=== PATIENT | female | born 1960 | race Caucasian/White ===

== ENCOUNTER → 2019-05-29 09:44 | Outpatient (CLI) | payer OTHER, SELFPAY ==
[2017-02-04 06:14] VITALS: BMI 27.1
[2019-05-29 12:18] LABS: Erythrocyte Sedimentation Rate < 1 mm/hr (0-30)
[2019-05-29 12:22] LABS: Absolute Lymphocyte Count 3.26 X10^3/uL (0.83-4.51); Absolute Neutrophil Count 1.9 X10^3/uL (2.0-7.7); Basophil# 0.08 X10^3/uL; Basophil% 1.3 % (0-1); Eosinophils% 4.9 % (0-5); Hematocrit 43.8 % (37-47); Hemoglobin 14.8 g/dL (12.0-15.0); Lymphocyte # 3.26 X10^3/ul (4.0); Lymphocyte % 53.4 % (19-41); Mean Corp Hgb Conc 33.8 g/dL (32-36); Mean Corpuscular Hgb 31.9 pg (27.0-32.0); Mean Corpuscular Volume 94.4 fL (81-99); Mean Platelet Vol. 10.5 fl (6.2-12.0); Monocyte# 0.51 X10^3/uL; Monocyte% 8.4 % (0-10); NRBC Flagged by Analyzer 0.3 % (0-5); Neutrophil # 1.93 X10^3/uL (2.7-7.7); Neutrophil % 31.7 % (47-70); Platelet Count 205 K/mm3 (150-450); RBC Distribution Width CV 13.9 % (11.6-14.6); RBC Distribution Width SD 45.4 fl (35.1-43.9); Red Blood Count 4.64 M/mm3 (4.2-5.4); White Blood Count 6.1 K/mm3 (4.4-11.0)
[2019-05-29 12:46] LABS: ALB/GLOB Ratio 1.1 RATIO (0.9-2.4); AST(SGOT) 24 U/L (15-37); Alanine Aminotransfer ALT/SGPT 29 U/L (13-56); Albumin, Serum 3.9 g/dL (3.2-5.0); Alkaline Phosphatase 73 U/L (45-117); Anion Gap 3 (5-15); BUN 12 mg/dL (7-18); BUN/Creat Ratio 12.9 RATIO (10-20); CRP < 2.90 mg/L (0.0-3.0); Chloride 110 mmol/L (98-107); Creatinine, Serum 0.93 mg/dL (0.55-1.02); EST Glomerular Filtration Rate 65 mL/min (>60); Est Glom Filt Rate - Afr Amer 79 mL/min (>60); Globulin 3.4 g/dL (2.2-4.2); Glucose 78 mg/dL (74-106); Potassium 4.3 mmol/L (3.5-5.1); Protein, Total 7.3 g/dL (6.4-8.2); Rheumatoid Factor < 10.0 IU/mL (<15); Sodium Level 143 mmol/L (136-145)
[2019-05-29 13:37] LABS: Hepatitis B Surface Antibody Non-Reactive; Hepatitis B Surface Antigen Non-Reactive (Nonreactive); Hepatitis C Antibody Non-Reactive (Nonreactive)
[2019-05-30 14:08] LABS: SJOGREN'S Anti-SS-A test < 0.2 AI (0.0-0.9); SJOGREN'S Anti-SS-B test < 0.2 AI (0.0-0.9)
[2019-05-30 16:53] LABS: ANTINUCLEAR ANTIBODIES DIRECT Negative (Negative)
[2019-06-01 11:07] LABS: QNTFERON TB Mitogen Value > 10.00 IU/mL (.); QNTFERON TB Nil Value 0.03 IU/mL (.); QNTFERON TB1+ Ag Value 0.03 IU/mL (.); QNTFERON TB2+ Ag Value 0.03 IU/mL (.)
[2019-06-01 13:02] LABS: CCP IgG Antibodies 4 units (0-19); Hepatitis B Core AB IgM Negative (Negative); QNTIFERON TB Positive Criteria Negative (Negative)
== END ==
PROVIDERS: Family Provider Student in an Organized Health Care Education/Training Program; PCP Student in an Organized Health Care Education/Training Program; Referring Provider Internal Medicine Rheumatology; Visit Provider Internal Medicine Rheumatology
DX: M05.79 Rheumatoid arthritis with rheumatoid factor of multiple sites without organ or systems involvement (principal); M35.00 Sjogren syndrome, unspecified; M17.0 Bilateral primary osteoarthritis of knee; M47.892 Other spondylosis, cervical region; M47.897 Other spondylosis, lumbosacral region; Z79.899 Other long term (current) drug therapy; Z87.19 Personal history of other diseases of the digestive system
CPT/HCPCS: 36415; 80053; 85025; 85652; 86038; 86140; 86200; 86235; 86431; 86480; 86705; 86706; 86803; 87340

== ENCOUNTER → 2019-09-05 12:14 | Outpatient (CLI) | payer OTHER, SELFPAY ==
[2017-02-04 06:14] VITALS: BMI 27.1
[2019-09-05 14:05] LABS: Absolute Lymphocyte Count 4.08 X10^3/uL (0.83-4.51); Absolute Neutrophil Count 3.1 X10^3/uL (2.0-7.7); Basophil# 0.07 X10^3/uL; Basophil% 0.8 % (0-1); Eosinophil# 0.57 X10^3/uL; Eosinophils% 6.8 % (0-5); Hematocrit 42.7 % (37-47); Hemoglobin 13.8 g/dL (12.0-15.0); Lymphocyte # 4.08 X10^3/ul (4.0); Lymphocyte % 48.5 % (19-41); Mean Corp Hgb Conc 32.3 g/dL (32-36); Mean Corpuscular Hgb 29.8 pg (27.0-32.0); Mean Corpuscular Volume 92.2 fL (81-99); Mean Platelet Vol. 10.3 fl (6.2-12.0); Monocyte# 0.56 X10^3/uL; Monocyte% 6.7 % (0-10); NRBC Flagged by Analyzer 0 % (0-5); Neutrophil # 3.12 X10^3/uL (2.7-7.7); Neutrophil % 37.1 % (47-70); Platelet Count 177 K/mm3 (150-450); RBC Distribution Width CV 14.4 % (11.6-14.6); RBC Distribution Width SD 48.2 fl (35.1-43.9); Red Blood Count 4.63 M/mm3 (4.2-5.4); White Blood Count 8.4 K/mm3 (4.4-11.0)
[2019-09-05 14:34] LABS: ALB/GLOB Ratio 1.2 RATIO (0.9-2.4); AST(SGOT) 30 U/L (15-37); Alanine Aminotransfer ALT/SGPT 37 U/L (13-56); Alkaline Phosphatase 60 U/L (45-117); Anion Gap 4 (5-15); BUN 16 mg/dL (7-18); BUN/Creat Ratio 14.8 RATIO (10-20); Calcium,Total 9.3 mg/dL (8.5-10.1); Chloride 106 mmol/L (98-107); Creatinine, Serum 1.08 mg/dL (0.55-1.02); EST Glomerular Filtration Rate 55 mL/min (>60); Est Glom Filt Rate - Afr Amer 66 mL/min (>60); Globulin 3.3 g/dL (2.2-4.2); Glucose 83 mg/dL (74-106); Potassium 4.3 mmol/L (3.5-5.1); Protein, Total 7.3 g/dL (6.4-8.2); Sodium Level 139 mmol/L (136-145)
== END ==
PROVIDERS: Family Provider Student in an Organized Health Care Education/Training Program; PCP Student in an Organized Health Care Education/Training Program; Referring Provider Internal Medicine Rheumatology; Visit Provider Internal Medicine Rheumatology
DX: M05.79 Rheumatoid arthritis with rheumatoid factor of multiple sites without organ or systems involvement (principal); M35.00 Sjogren syndrome, unspecified; M17.0 Bilateral primary osteoarthritis of knee; M47.892 Other spondylosis, cervical region; M47.897 Other spondylosis, lumbosacral region; R51 Headache; Z79.899 Other long term (current) drug therapy; Z87.19 Personal history of other diseases of the digestive system
CPT/HCPCS: 36415; 80053; 85025

== ENCOUNTER → 2019-11-27 11:47 | Outpatient (CLI) | payer OTHER, SELFPAY ==
[2019-11-27 13:06] LABS: Absolute Neutrophil Count 3.4 X10^3/uL (2.0-7.7); Basophil# 0.09 X10^3/uL; Eosinophil# 0.17 X10^3/uL; Hematocrit 41.8 % (37-47); Hemoglobin 13.8 g/dL (12.0-15.0); Lymphocyte % 50.1 % (19-41); Mean Corpuscular Hgb 30.9 pg (27.0-32.0); Mean Corpuscular Volume 93.7 fL (81-99); Mean Platelet Vol. 10.7 fl (6.2-12.0); NRBC Flagged by Analyzer 0 % (0-5); Neutrophil # 3.39 X10^3/uL (2.7-7.7); Neutrophil % 39.6 % (47-70); Platelet Count 184 K/mm3 (150-450); RBC Distribution Width CV 13.5 % (11.6-14.6); Red Blood Count 4.46 M/mm3 (4.2-5.4); White Blood Count 8.6 K/mm3 (4.4-11.0)
[2019-11-27 13:36] LABS: ALB/GLOB Ratio 1.3 RATIO (0.9-2.4); AST(SGOT) 21 U/L (15-37); Alanine Aminotransfer ALT/SGPT 31 U/L (13-56); Albumin, Serum 3.8 g/dL (3.2-5.0); Alkaline Phosphatase 61 U/L (45-117); Anion Gap 3 (5-15); BUN 17 mg/dL (7-18); Calcium,Total 9.1 mg/dL (8.5-10.1); Chloride 107 mmol/L (98-107); EST Glomerular Filtration Rate 60 mL/min (>60); Est Glom Filt Rate - Afr Amer 72 mL/min (>60); Globulin 2.9 g/dL (2.2-4.2); Glucose 112 mg/dL (74-106); Potassium 4.1 mmol/L (3.5-5.1); Protein, Total 6.7 g/dL (6.4-8.2); Sodium Level 139 mmol/L (136-145)
== END ==
PROVIDERS: PCP Student in an Organized Health Care Education/Training Program; Visit Provider Internal Medicine Rheumatology
DX: M05.79 Rheumatoid arthritis with rheumatoid factor of multiple sites without organ or systems involvement (principal); M17.0 Bilateral primary osteoarthritis of knee; M35.00 Sjogren syndrome, unspecified; M65.351 Trigger finger, right little finger; M47.892 Other spondylosis, cervical region; M47.897 Other spondylosis, lumbosacral region; R51 Headache; Z79.899 Other long term (current) drug therapy; Z87.19 Personal history of other diseases of the digestive system
CPT/HCPCS: 36415; 80053; 85025

== ENCOUNTER → 2020-02-29 15:26 | Outpatient (CLI) | payer OTHER, SELFPAY ==
[2020-02-29 16:13] LABS: Absolute Lymphocyte Count 6.76 X10^3/uL (0.83-4.51); Absolute Neutrophil Count 3.9 X10^3/uL (2.0-7.7); Basophil# 0.08 X10^3/uL; Basophil% 0.7 % (0-1); Eosinophil# 0.18 X10^3/uL; Eosinophils% 1.6 % (0-5); Hematocrit 42.5 % (37-47); Hemoglobin 13.8 g/dL (12.0-15.0); Lymphocyte # 6.76 X10^3/ul (4.0); Lymphocyte % 58.5 % (19-41); Mean Corp Hgb Conc 32.5 g/dL (32-36); Mean Corpuscular Hgb 29.9 pg (27.0-32.0); Mean Platelet Vol. 10.6 fl (6.2-12.0); Monocyte# 0.65 X10^3/uL; Monocyte% 5.6 % (0-10); NRBC Flagged by Analyzer 0 % (0-5); Neutrophil # 3.86 X10^3/uL (2.7-7.7); Neutrophil % 33.4 % (47-70); POSITIVE DIFFERENTIAL YES; POSITIVE MORPHOLOGY YES; Platelet Count 198 K/mm3 (150-450); RBC Distribution Width CV 14.1 % (11.6-14.6); RBC Distribution Width SD 47.5 fl (35.1-43.9); Red Blood Count 4.62 M/mm3 (4.2-5.4); White Blood Count 11.6 K/mm3 (4.4-11.0)
[2020-02-29 16:32] LABS: Differential Indicated SCAN CRITERIA MET
[2020-02-29 16:59] LABS: ALB/GLOB Ratio 1.3 RATIO (0.9-2.4); AST(SGOT) 23 U/L (15-37); Alanine Aminotransfer ALT/SGPT 29 U/L (13-56); Albumin, Serum 4.1 g/dL (3.2-5.0); Alkaline Phosphatase 61 U/L (45-117); Anion Gap 7 (5-15); BUN 16 mg/dL (7-18); BUN/Creat Ratio 17.1 RATIO (10-20); Calcium,Total 9.1 mg/dL (8.5-10.1); Chloride 107 mmol/L (98-107); Creatinine, Serum 0.94 mg/dL (0.55-1.02); EST Glomerular Filtration Rate 64 mL/min (>60); Est Glom Filt Rate - Afr Amer 78 mL/min (>60); Globulin 3.2 g/dL (2.2-4.2); Glucose 83 mg/dL (74-106); Potassium 3.9 mmol/L (3.5-5.1); Protein, Total 7.3 g/dL (6.4-8.2); Sodium Level 140 mmol/L (136-145)
[2020-02-29 17:22] LABS: Platelet Estimate ADEQUATE (ADEQ); Reactive Lymphocyte 1+; Red Cell Morphology NORM C+C NORMAL (NORM C&C)
== END ==
PROVIDERS: PCP Student in an Organized Health Care Education/Training Program; Visit Provider Internal Medicine Rheumatology
DX: M05.79 Rheumatoid arthritis with rheumatoid factor of multiple sites without organ or systems involvement (principal); M17.0 Bilateral primary osteoarthritis of knee; M35.00 Sjogren syndrome, unspecified; M65.351 Trigger finger, right little finger; M47.892 Other spondylosis, cervical region; M47.897 Other spondylosis, lumbosacral region; R51 Headache; Z79.899 Other long term (current) drug therapy; Z87.19 Personal history of other diseases of the digestive system
CPT/HCPCS: 36415; 80053; 85025

== ENCOUNTER → 2020-08-13 09:19 | Outpatient (CLI) | payer OTHER, SELFPAY ==
[2017-02-04 06:14] VITALS: BMI 27.1
[2020-08-13 10:13] LABS: Absolute Neutrophil Count 2.6 X10^3/uL (2.0-7.7); Basophil# 0.08 X10^3/uL; Basophil% 0.6 % (0-1); Eosinophil# 0.68 X10^3/uL; Eosinophils% 4.8 % (0-5); Hematocrit 44.3 % (37-47); Hemoglobin 13.9 g/dL (12.0-15.0); Lymphocyte % 71.1 % (19-41); Mean Corp Hgb Conc 31.4 g/dL (32-36); Mean Corpuscular Hgb 29.1 pg (27.0-32.0); Mean Corpuscular Volume 92.7 fL (81-99); Mean Platelet Vol. 10.5 fl (6.2-12.0); Monocyte# 0.65 X10^3/uL; Monocyte% 4.6 % (0-10); NRBC Flagged by Analyzer 0 % (0-5); Neutrophil # 2.63 X10^3/uL (2.7-7.7); Neutrophil % 18.8 % (47-70); POSITIVE DIFFERENTIAL YES; Platelet Count 197 K/mm3 (150-450); RBC Distribution Width CV 12.8 % (11.6-14.6); RBC Distribution Width SD 44.3 fl (35.1-43.9); Red Blood Count 4.78 M/mm3 (4.2-5.4); White Blood Count 14.1 K/mm3 (4.4-11.0)
[2020-08-13 10:44] LABS: ALB/GLOB Ratio 1.1 RATIO (0.9-2.4); AST(SGOT) 17 U/L (15-37); Alanine Aminotransfer ALT/SGPT 23 U/L (13-56); Albumin, Serum 3.7 g/dL (3.2-5.0); Alkaline Phosphatase 70 U/L (45-117); Anion Gap 3 (5-15); BUN 18 mg/dL (7-18); BUN/Creat Ratio 18.1 RATIO (10-20); Calcium,Total 9.2 mg/dL (8.5-10.1); Chloride 107 mmol/L (98-107); Creatinine, Serum 0.99 mg/dL (0.55-1.02); EST Glomerular Filtration Rate 60 mL/min (>60); Est Glom Filt Rate - Afr Amer 73 mL/min (>60); Globulin 3.3 g/dL (2.2-4.2); Glucose 95 mg/dL (74-106); Potassium 4.5 mmol/L (3.5-5.1); Sodium Level 140 mmol/L (136-145)
[2020-08-13 10:55] LABS: Differential Indicated SCAN CRITERIA MET
[2020-08-14 13:43] LABS: Pathologist Review Reviewed
== END ==
PROVIDERS: PCP Student in an Organized Health Care Education/Training Program; Referring Provider Internal Medicine Rheumatology; Visit Provider Internal Medicine Rheumatology
DX: M05.70 Rheumatoid arthritis with rheumatoid factor of unspecified site without organ or systems involvement (principal); M35.00 Sjogren syndrome, unspecified; M65.351 Trigger finger, right little finger; M17.0 Bilateral primary osteoarthritis of knee; M47.892 Other spondylosis, cervical region; M47.897 Other spondylosis, lumbosacral region; R51.9 Headache, unspecified; Z87.19 Personal history of other diseases of the digestive system; Z79.899 Other long term (current) drug therapy
CPT/HCPCS: 36415; 80053; 85025

== ENCOUNTER → 2021-03-26 12:43 | Outpatient (CLI) | payer OTHER, SELFPAY ==
[2017-02-04 06:14] VITALS: BMI 27.1
[2021-03-26 15:16] LABS: Absolute Lymphocyte Count 19.87 X10^3/uL (0.83-4.51); Absolute Neutrophil Count 4.9 X10^3/uL (2.0-7.7); Basophil# 0.09 X10^3/uL; Basophil% 0.4 % (0-1); Eosinophil# 0.15 X10^3/uL; Eosinophils% 0.6 % (0-5); Hemoglobin 14.5 g/dL (12.0-15.0); Lymphocyte # 19.87 X10^3/ul (0.83-4.51); Lymphocyte % 77.5 % (19-41); Mean Corp Hgb Conc 31.5 g/dL (32-36); Mean Corpuscular Hgb 28.5 pg (27.0-32.0); Mean Corpuscular Volume 90.6 fL (81-99); Mean Platelet Vol. 10.9 fl (6.2-12.0); Monocyte# 0.55 X10^3/uL; Monocyte% 2.1 % (0-10); NRBC Flagged by Analyzer 0 % (0-5); Neutrophil # 4.94 X10^3/uL (2.7-7.7); Neutrophil % 19.3 % (47-70); POSITIVE DIFFERENTIAL YES; POSITIVE MORPHOLOGY YES; Platelet Count 205 K/mm3 (150-450); RBC Distribution Width CV 13.7 % (11.6-14.6); RBC Distribution Width SD 45.6 fl (35.1-43.9); Red Blood Count 5.08 M/mm3 (4.2-5.4); White Blood Count 25.6 K/mm3 (4.4-11.0)
[2021-03-26 15:17] LABS: Differential Indicated SCAN CRITERIA MET
[2021-03-26 15:25] LABS: ALB/GLOB Ratio 1.3 RATIO (0.9-2.4); AST(SGOT) 31 U/L (15-37); Alanine Aminotransfer ALT/SGPT 29 U/L (13-56); Albumin, Serum 4.3 g/dL (3.2-5.0); Alkaline Phosphatase 70 U/L (45-117); Anion Gap 7 (5-15); BUN 14 mg/dL (7-18); BUN/Creat Ratio 12.7 RATIO (10-20); Calcium,Total 9.3 mg/dL (8.5-10.1); Chloride 104 mmol/L (98-107); EST Glomerular Filtration Rate 53 mL/min (>60); Est Glom Filt Rate - Afr Amer 65 mL/min (>60); Globulin 3.3 g/dL (2.2-4.2); Glucose 112 mg/dL (74-106); Potassium 3.6 mmol/L (3.5-5.1); Protein, Total 7.6 g/dL (6.4-8.2); Sodium Level 139 mmol/L (136-145)
[2021-03-26 15:54] LABS: Anisocytosis RARE; Macrocytosis RARE; Platelet Estimate ADEQUATE (ADEQ); Red Cell Morphology N CHROM NORMAL (NORM C&C)
[2021-03-27 10:14] LABS: Pathologist Review Reviewed
== END ==
PROVIDERS: PCP Student in an Organized Health Care Education/Training Program; Referring Provider Internal Medicine Rheumatology; Visit Provider Internal Medicine Rheumatology
DX: M05.70 Rheumatoid arthritis with rheumatoid factor of unspecified site without organ or systems involvement (principal); M35.00 Sjogren syndrome, unspecified; M65.351 Trigger finger, right little finger; C91.10 Chronic lymphocytic leukemia of B-cell type not having achieved remission; M17.0 Bilateral primary osteoarthritis of knee; M47.892 Other spondylosis, cervical region; M47.897 Other spondylosis, lumbosacral region; R51.9 Headache, unspecified; Z79.899 Other long term (current) drug therapy; Z87.19 Personal history of other diseases of the digestive system
CPT/HCPCS: 36415; 80053; 85025

== ENCOUNTER → 2021-05-18 16:24 | Outpatient (CLI) | payer OTHER, SELFPAY ==
[2021-05-18 17:21] LABS: Absolute Lymphocyte Count 28.87 X10^3/uL (0.83-4.51); Absolute Neutrophil Count 3.5 X10^3/uL (2.0-7.7); Basophil# 0.14 X10^3/uL; Basophil% 0.4 % (0-1); Eosinophil# 0.25 X10^3/uL; Eosinophils% 0.7 % (0-5); Hematocrit 41.4 % (37-47); Hemoglobin 13.2 g/dL (12.0-15.0); Lymphocyte # 28.87 X10^3/ul (0.83-4.51); Lymphocyte % 85.6 % (19-41); Mean Corp Hgb Conc 31.9 g/dL (32-36); Mean Corpuscular Hgb 29.5 pg (27.0-32.0); Mean Corpuscular Volume 92.4 fL (81-99); Mean Platelet Vol. 10.2 fl (6.2-12.0); Monocyte# 0.95 X10^3/uL; Monocyte% 2.8 % (0-10); NRBC Flagged by Analyzer 0 % (0-5); Neutrophil # 3.47 X10^3/uL (2.7-7.7); Neutrophil % 10.3 % (47-70); POSITIVE COUNT YES; POSITIVE DIFFERENTIAL YES; POSITIVE MORPHOLOGY YES; Platelet Count 212 K/mm3 (150-450); RBC Distribution Width CV 14.7 % (11.6-14.6); RBC Distribution Width SD 49.1 fl (35.1-43.9); Red Blood Count 4.48 M/mm3 (4.2-5.4)
[2021-05-18 17:34] LABS: Differential Indicated SCAN CRITERIA MET; White Blood Count 33.7 K/mm3 (4.4-11.0)
[2021-05-18 17:48] LABS: ALB/GLOB Ratio 1.4 RATIO (0.9-2.4); AST(SGOT) 17 U/L (15-37); Alanine Aminotransfer ALT/SGPT 25 U/L (13-56); Alkaline Phosphatase 60 U/L (45-117); Anion Gap 4 (5-15); BUN 17 mg/dL (7-18); Chloride 106 mmol/L (98-107); EST Glomerular Filtration Rate 60 mL/min (>60); Est Glom Filt Rate - Afr Amer 72 mL/min (>60); Globulin 2.9 g/dL (2.2-4.2); Glucose 86 mg/dL (74-106); Potassium 4.2 mmol/L (3.5-5.1); Protein, Total 6.9 g/dL (6.4-8.2); Sodium Level 139 mmol/L (136-145)
[2021-05-18 17:54] LABS: Platelet Estimate ADEQUATE (ADEQ); Reactive Lymphocyte 1+; Red Cell Morphology NORM C+C NORMAL (NORM C&C)
[2021-05-19 13:14] LABS: Pathologist Review Reviewed
== END ==
PROVIDERS: PCP Student in an Organized Health Care Education/Training Program; Visit Provider Internal Medicine Rheumatology
DX: M05.70 Rheumatoid arthritis with rheumatoid factor of unspecified site without organ or systems involvement (principal); Z79.899 Other long term (current) drug therapy; M35.00 Sjogren syndrome, unspecified; M65.351 Trigger finger, right little finger; M17.0 Bilateral primary osteoarthritis of knee; M47.892 Other spondylosis, cervical region; M47.897 Other spondylosis, lumbosacral region; R51.9 Headache, unspecified; C91.10 Chronic lymphocytic leukemia of B-cell type not having achieved remission; Z87.19 Personal history of other diseases of the digestive system
CPT/HCPCS: 36415; 80053; 85025

== ENCOUNTER → 2021-08-03 12:04 | Outpatient (CLI) | payer OTHER, SELFPAY ==
[2021-08-03 12:31] LABS: Absolute Lymphocyte Count 27.16 X10^3/uL (0.83-4.51); Absolute Neutrophil Count 3.8 X10^3/uL (2.0-7.7); Basophil# 0.14 X10^3/uL; Basophil% 0.4 % (0-1); Eosinophil# 0.31 X10^3/uL; Hematocrit 39.6 % (37-47); Hemoglobin 12.9 g/dL (12.0-15.0); Lymphocyte # 27.16 X10^3/ul (0.83-4.51); Lymphocyte % 84.1 % (19-41); Mean Corp Hgb Conc 32.6 g/dL (32-36); Mean Corpuscular Hgb 29.9 pg (27.0-32.0); Mean Corpuscular Volume 91.7 fL (81-99); Mean Platelet Vol. 10.3 fl (6.2-12.0); Monocyte# 0.85 X10^3/uL; Monocyte% 2.6 % (0-10); NRBC Flagged by Analyzer 0 % (0-5); Neutrophil # 3.78 X10^3/uL (2.7-7.7); Neutrophil % 11.7 % (47-70); POSITIVE COUNT YES; POSITIVE DIFFERENTIAL YES; POSITIVE MORPHOLOGY YES; Platelet Count 195 K/mm3 (150-450); RBC Distribution Width CV 14.7 % (11.6-14.6); RBC Distribution Width SD 49.1 fl (35.1-43.9); Red Blood Count 4.32 M/mm3 (4.2-5.4); White Blood Count 32.3 K/mm3 (4.4-11.0)
[2021-08-03 12:53] LABS: Differential Indicated SCAN CRITERIA MET
[2021-08-03 12:54] LABS: Differential Comment SCANNED
[2021-08-03 13:07] LABS: ALB/GLOB Ratio 1.1 RATIO (0.9-2.4); AST(SGOT) 24 U/L (15-37); Alanine Aminotransfer ALT/SGPT 26 U/L (13-56); Albumin, Serum 3.6 g/dL (3.2-5.0); Alkaline Phosphatase 65 U/L (45-117); Anion Gap 3 (5-15); BUN 16 mg/dL (7-18); BUN/Creat Ratio 17.8 RATIO (10-20); Chloride 107 mmol/L (98-107); EST Glomerular Filtration Rate 67 mL/min (>60); Est Glom Filt Rate - Afr Amer 81 mL/min (>60); Globulin 3.2 g/dL (2.2-4.2); Glucose 86 mg/dL (74-106); Potassium 4.2 mmol/L (3.5-5.1); Protein, Total 6.8 g/dL (6.4-8.2); Sodium Level 138 mmol/L (136-145)
[2021-08-04 14:02] LABS: Pathologist Review Reviewed
== END ==
PROVIDERS: PCP Student in an Organized Health Care Education/Training Program; Referring Provider Internal Medicine Rheumatology; Visit Provider Internal Medicine Rheumatology
DX: M05.70 Rheumatoid arthritis with rheumatoid factor of unspecified site without organ or systems involvement (principal); C91.10 Chronic lymphocytic leukemia of B-cell type not having achieved remission; M15.9 Polyosteoarthritis, unspecified; M35.00 Sjogren syndrome, unspecified; M65.351 Trigger finger, right little finger; M17.0 Bilateral primary osteoarthritis of knee; M47.892 Other spondylosis, cervical region; M47.897 Other spondylosis, lumbosacral region; R51.9 Headache, unspecified; Z79.899 Other long term (current) drug therapy; Z87.19 Personal history of other diseases of the digestive system
CPT/HCPCS: 36415; 80053; 85025

== ENCOUNTER 2021-11-04 16:36 | Outpatient (CLI) | payer OTHER, SELFPAY ==
[2021-11-04 17:56] LABS: Absolute Lymphocyte Count 37.79 X10^3/uL (0.83-4.51); Absolute Neutrophil Count 4.8 X10^3/uL (2.0-7.7); Basophil# 0.14 X10^3/uL; Basophil% 0.3 % (0-1); Eosinophil# 0.34 X10^3/uL; Eosinophils% 0.8 % (0-5); Hematocrit 41.7 % (37-47); Hemoglobin 13.3 g/dL (12.0-15.0); Lymphocyte # 37.79 X10^3/ul (0.83-4.51); Lymphocyte % 85.8 % (19-41); Mean Corp Hgb Conc 31.9 g/dL (32-36); Mean Corpuscular Hgb 29.7 pg (27.0-32.0); Mean Corpuscular Volume 93.1 fL (81-99); Mean Platelet Vol. 10.7 fl (6.2-12.0); Monocyte# 0.86 X10^3/uL; NRBC Flagged by Analyzer 0.1 % (0-5); Neutrophil # 4.83 X10^3/uL (2.7-7.7); Neutrophil % 10.9 % (47-70); POSITIVE COUNT YES; POSITIVE DIFFERENTIAL YES; Platelet Count 165 K/mm3 (150-450); RBC Distribution Width CV 14.5 % (11.6-14.6); RBC Distribution Width SD 48.7 fl (35.1-43.9); Red Blood Count 4.48 M/mm3 (4.2-5.4)
[2021-11-04 18:43] LABS: ALB/GLOB Ratio 1.2 RATIO (0.9-2.4); AST(SGOT) 26 U/L (15-37); Alanine Aminotransfer ALT/SGPT 31 U/L (13-56); Alkaline Phosphatase 70 U/L (45-117); Anion Gap 8 (5-15); BUN 17 mg/dL (7-18); BUN/Creat Ratio 16.3 RATIO (10-20); Calcium,Total 9.4 mg/dL (8.5-10.1); Chloride 105 mmol/L (98-107); Creatinine, Serum 1.04 mg/dL (0.55-1.02); EST Glomerular Filtration Rate 57 mL/min (>60); Est Glom Filt Rate - Afr Amer 69 mL/min (>60); Globulin 3.2 g/dL (2.2-4.2); Glucose 88 mg/dL (74-106); Potassium 3.9 mmol/L (3.5-5.1); Protein, Total 7.2 g/dL (6.4-8.2); Sodium Level 139 mmol/L (136-145)
[2021-11-04 19:20] LABS: Differential Indicated SCAN CRITERIA MET
[2021-11-04 19:44] LABS: Differential Comment SCANNED
[2021-11-04 19:45] LABS: Smudge Cells 1+
[2021-11-05 14:00] LABS: Pathologist Review Reviewed
== END 2021-11-04 23:59 | disposition short-term general hospital (02) ==
LOC: MTLAB 16:38
PROVIDERS: PCP Student in an Organized Health Care Education/Training Program; Referring Provider Internal Medicine Rheumatology; Visit Provider Internal Medicine Rheumatology
DX: M05.70 Rheumatoid arthritis with rheumatoid factor of unspecified site without organ or systems involvement (principal); C91.10 Chronic lymphocytic leukemia of B-cell type not having achieved remission; M35.00 Sjogren syndrome, unspecified; M65.351 Trigger finger, right little finger; M17.0 Bilateral primary osteoarthritis of knee; M47.897 Other spondylosis, lumbosacral region; R51.9 Headache, unspecified; Z79.899 Other long term (current) drug therapy; Z87.19 Personal history of other diseases of the digestive system
CPT/HCPCS: 36415; 80053; 85025

== ENCOUNTER 2022-04-12 08:12 | Day surgery (SDC) | payer OTHER, SELFPAY ==
--- NOTE | 2022-04-12 08:28 | HP.PCM_ITS ---
History and Physical Date of Admission: 04/12/22 GISSELLE RATLIFF, is a 61 F who presents to the office today for Initial consult. Gisselle established with this clinic 02.24.22 as a self-referral for evaluation of dysphagia. Feels food (not pills or liquid) gets stuck and this will typically resolve with repeated swallowing; however, did need to do Heimlich maneuver several weeks prior to initial presentation. Dysphagia has been present for several months and has been getting progressively worse; she pays very close attention to bite size and swallowing to prevent occurrence with each PO intake. PCP recommended she continue with protonix 40mg QD and encouraged presentation to this clinic. has mentioned to her that her swallowing is very loud when laying down; she reports that swallowing is harder when laying. Had several EGD through [facility] performed in the last 5-10 years for inflamed stomach; does not recall diagnosis, records are unavailable. Screening colonoscopy performed in the last ten years and cologuard performed late 2020. PMH CLL/SLL (Dr. Emily Dominguez seen 04.28.2020 with biopsy 05.09.2020, no chemotherapy/radiation history); seropositive RA (Dr. Rhonda Hernandez); GERD; HTN. CT abd/pel/chest 02.23.20 with [facility] stable subcentimeter low density hepatic cysts; large amount fecal material in colon; mildly enlarged mesenteric, iliac, periaortic, pulmonary, paratracheal, hilar, axillary lymph nodes. ROS Const Constitutional: No fatigue, malaise, night sweats, weight change, sleep problems, abnormal sleep pattern or change in appetite ENT ENT: No difficulty swallowing, hoarseness or sore throat Cardio Cardiology: No chest pain at rest Gastro GI: No abdominal pain, belching, bloating, change in bowel habits, change in stool character, coffee ground emesis, constipation, cramping, diarrhea, heartburn, difficulty swallowing, feeling full early, excessive flatus, incontinent of stools, Vomiting blood/hematemesis, Blood in stool, loose stools, Black,tarry stools, nausea/dyspepsia, pain with swallowing, vomiting or other Musc Musculoskeletal: No joint pain Skin Skin: No yellowing of the eye or itchy eyes Neuro Neurology: No behavioral changes Psych Psychiatric: No abnormal sleep pattern, No anxiety, No behavioral changes, No change in appetite and No depression Endo Endocrine: No fatigue or weight change Aller/Imm Allergy/Immunologic: No itchy eyes Speedy/Lymp Hematologic/Lymphatic: No easy bleeding or easy bruising Exam Const General: cooperative and comfortable Nutritional Appearance: average body habitus and well nourished [facility] [place] Head: normal to inspection Ears: hearing grossly normal bilaterally Nose: external nose normal Face and sinus: normal facial exam Mouth: oral mucosae normal Throat: posterior oropharynx normal Eyes General: appearance normal, both eyes and all related structures Neck Neck: normal visual inspection Chest Chest palpation & inspection: normal inspection of the chest and normal palpation of entire chest wall Resp Effort & Inspection: normal respiratory effort Auscultation: Bilateral: Clear to Auscultation Cardio Palpation: normal PMI Rate: regular rate Rhythm: regular rhythm GI Inspection: normal to inspection Auscultation: normal bowel sounds Percussion: normal to percussion Palpation: no hepatosplenomegaly Skin General: no rashes or lesions noted Neuro General: patient alert Extrem General: normal to inspection Psych Affect: normal affect Quality Reporting Tobacco Screening ([facility] 138) Smoking Status: Never smoker Assessment and Plan Assessment and Plan (1) Dysphagia: ?Status:?Inactive ?Plan - Dr. Tesfaye Friend, DO: The differential diagnosis for esophageal dysphagia would be eosinophilic esophagitis, esophageal web, esophageal ring, esophageal dysmotility disorder such as ineffective esophageal relaxation.? It does not sound like hypertensive esophagus.? Also in the differential diagnosis for her would be Sjogren's syndrome or crest syndrome.? Her mother did suffer from Sjogren's syndrome and she is seropositive for rheumatoid which will increase her risk pathologic disorder.? She will go an upper endoscopy to evaluate her upper GI tract. (2) GERD (gastroesophageal reflux disease): ?Status:?Inactive ?Plan - Dr. Tesfaye Friend, DO: She is not having much GERD symptoms during the day.? She has been on pantoprazole 40 mg for a long time and it seems to be controlling her symptoms.? She is complaining of intermittent trouble swallowing as she lays down at night.? However she does take a very strong anticholinergic and antihistamine nimo which helps her.? I told her that this could be drying up her mucous membranes and therefore stopping some of the saliva I told her to? Stop the medicine for sleep for about a week.? It would take about 5 to 7 days for her to totally get out of her system and to see if it improves her swallowing at night. I have re-examined the patient. There are no clinical changes since date of exam.
[2022-04-12 08:32] VITALS: BP 133/69; PULSE 76; RESP 16; TEMP 36.1; O2SAT 100; BMI 27.9
[2022-04-12] MEDS: Lactated Ringers 1,000 ML 15 ML IV (08:40)
--- NOTE | 2022-04-12 09:15 | EGD_PTH ---
PATIENT: GISSELLE RATLIFF LOC: EN U#:[id number] AGE/SX: 61/F ROOM: RE04/12/[address]: Dr. Brien Santa DO : 1960 BED: DIS: 04/12/2022 SPEC #: [id number] RECD: 04/12/22 09:53 STATUS: MICHELLE REMarina #: [id number] RENARD: 04/12/22 09:[address]: Brien Santa DEPT: SURGICAL PATHOLOGY RECD BY: Helen Kay ENTERED: 04/12/22 12:59 SP TYPE: EGD BIOPSY OT DR: Dr. Keegan Wolf DO Tissues: A - Pylorus B - Esophagus, NOS Procedures: Special Stain Group II Surgery Specimen Level IV Alcian Blue/PAS (control) HEADER OPERATION: EGD with biopsy and dilation (MAC) PRE-OP DIAGNOSIS: Dysphagia, GERD TISSUE SUBMITTED: A ? Pylorus, B ? Distal esophagus MICROSCOPIC DIAGNOSIS A. Gastric pylorus, biopsy: Mild chronic inflammation. Intestinal metaplasia. No evidence of dysplasia. See comment. B. Distal esophagus, biopsy: Gastroesophageal junctional mucosa with mild chronic inflammation. No evidence of goblet cell metaplasia. See comment. AM:bibi 04/13/2022 COMMENT A. The results of immunohistochemistry for Helicobacter pylori will be reported separately ([id number]). Immunohistochemistry ([id number]) for P53 and Ki-67 will be performed and results will be reported separately. Alcian blue/PAS stain with matched control supports the above diagnosis. B. Alcian blue/PAS stain with matched control supports the above diagnosis. MICROSCOPIC DESCRIPTION Slides are reviewed. GROSS DESCRIPTION A - Received in fixative is one container labeled with the patient's name and designated pylorus. The specimen consists of multiple irregular fragments of light toure soft tissue that in aggregate measure 0.5 x 0.5 x 0.1 cm. The specimen is totally submitted in one cassette. B - Received in fixative is one container labeled with the patient's name and designated distal esophagus. The specimen consists of multiple irregular fragments of light toure soft tissue that in aggregate measure 0.5 x 0.4 x 0.1 cm. The specimen is totally submitted in one cassette. / MEGHA:bibi 04/12/2022 TC:3 CPT: 02257 x2, 39332 x2
--- NOTE | 2022-04-12 09:15 | IMM_PTH ---
PATIENT: GISSELLE RATLIFF LOC: EN U#:[id number] AGE/SX: 61/F ROOM: RE04/12/[address]: Dr. Brien Santa DO : 1960 BED: DIS: 04/12/2022 SPEC #: [id number] RECD: 04/12/22 14:38 STATUS: MICHELLE REQ #: [id number] RENARD: 04/12/22 09:[address]: Brien Santa DEPT: IMMUNOHISTOCHEMISTRY RECD BY: Karen Lee ENTERED: 04/12/22 14:38 SP TYPE: IMMUNO OTHR DR: Dr. Keegan Wolf DO Tissues: A - Pyloric portion of stomach Procedures: H Pylori (initial) KI-67 (add) P53 (add) PHYSICIAN & INSTITUTION [place] [address] SPECIMEN INFORMATION: Tissue Source: A - Pylorus Clinical Info: Dysphagia, GERD Specimen Number: [id number] CPT code: 46726, 74542 x2 METHODOLOGY: Deparaffinized sections of prefer/formalin-fixed tissue or PAP/DQ stained slides are incubated with monoclonal/polyclonal antibodies/oligonucleotide probes. Localization is made via biotin free immunoperoxidase method. Appropriate controls are performed and reacted as expected. Results on target cell population are indicated in the following table: RESULTS: ANTIBODY / CLONE RESULT Block A H Pylori (polyclonal) negative P53 (DO-7) negative Ki-67 (30-9) positive, low These tests were developed and their performance characteristics determined by [facility]. They may not have been cleared or approved by the U.S. Food and Drug Administration. The FDA has determined that such clearance or approval is not necessary. The above immunohistochemical/dualISH markers are ordered and reviewed by the Pathologist. INTERPRETATION: A. Pylorus, biopsy: Negative for Helicobacter pylori organisms. No evidence of dysplasia. AM:bibi 04/14/2022
[2022-04-12 09:36] VITALS: BP 111/49; BP 133/69; PULSE 77; RESP 16; TEMP 36.4; O2SAT 97
--- NOTE | 2022-04-12 09:39 | OP.EGD_ITS ---
Patient Name: Anna Rubio Procedure Date: 04/12/2022 9:16 AM Date of : 1960 Age: 61 Procedure: Upper GI endoscopy Indications: Dysphagia, Heartburn Providers: Brien Santa DO Medicines: Monitored Anesthesia Care Patient Profile: This is a 61 year old female. Refer to note in patient chart for documentation of history and physical. Patient has symptoms of chronic dysphagia and dysphagia with solids. Complications: No immediate complications. Procedure: Pre-Anesthesia Assessment: - Prior to the procedure, a History and Physical was performed, and patient medications and allergies were reviewed. The risks and benefits of the procedure and the sedation options and risks were discussed with the patient. All questions were answered and informed consent was obtained. Patient identification and proposed procedure were verified by the physician in the pre-procedure area. Mental Status Examination: alert and oriented. Airway Examination: normal oropharyngeal airway and neck mobility. Respiratory Examination: clear to auscultation. CV Examination: normal. Prophylactic Antibiotics: The patient does not require prophylactic antibiotics. Prior Anticoagulants: The patient has taken no previous anticoagulant or antiplatelet agents. ASA Grade Assessment: II - A patient with mild systemic disease. After reviewing the risks and benefits, the patient was deemed in satisfactory condition to undergo the procedure. The anesthesia plan was to use moderate sedation / analgesia (conscious sedation). Immediately prior to administration of medications, the patient was re-assessed for adequacy to receive sedatives. The heart rate, respiratory rate, oxygen saturations, blood pressure, adequacy of pulmonary ventilation, and response to care were monitored throughout the procedure. The physical status of the patient was re-assessed after the procedure. After obtaining informed consent, the endoscope was passed under direct vision. Throughout the procedure, the patient's blood pressure, pulse, and oxygen saturations were monitored continuously. The gastroscope was introduced through the mouth, and advanced to the second part of duodenum. The upper GI endoscopy was accomplished without difficulty. The patient tolerated the procedure well. Scope In: 9:24:51 AM Scope Out: 9:31:56 AM Total Procedure Duration Time 0 hours 7 minutes 5 seconds Findings: Non-severe esophagitis with no bleeding was found 35 to 38 cm from the incisors. Biopsies were taken with a cold forceps for histology. Verification of patient identification for the specimen was done. Estimated blood loss was minimal. The upper third of the esophagus was moderately tortuous. One benign-appearing, intrinsic stenosis was found 22 to 24 cm from the incisors. This stenosis was mildly severe and. The stenosis was traversed. A guidewire was placed and the scope was withdrawn. Dilation was performed with a Savary dilator with no resistance at 60 Fr. The dilation site was examined and showed moderate improvement in luminal narrowing. Estimated blood loss was minimal. Localized mild inflammation characterized by granularity was found at the pylorus. Biopsies were taken with a cold forceps for histology. Verification of patient identification for the specimen was done. Estimated blood loss was minimal. The second portion of the duodenum was normal. Impression: - Non-severe reflux esophagitis. Biopsied. - Tortuous esophagus. - Benign-appearing esophageal stenosis. Dilated. - Gastritis. Biopsied. - Normal second portion of the duodenum. Recommendation: - Discharge patient to home. - Resume previous diet. - Continue present medications. - Await pathology results. Procedure Code(s): --- Professional --- 89384, Esophagogastroduodenoscopy, flexible, transoral; with insertion of guide wire followed by passage of dilator(s) through esophagus over guide wire 02719, 59,51, Esophagogastroduodenoscopy, flexible, transoral; with biopsy, single or multiple CPT copyright 2017 [employer]. All rights reserved. The codes documented in this report are preliminary and upon gaming associate review may be revised to meet current compliance requirements. Brien Santa DO 04/12/2022 9:39:12 AM This report has been signed electronically. Number of Addenda: 1 Note Initiated On: 04/12/2022 9:16 AM Addendum Number: 1 Addendum Date: 07/07/2022 6:24:13 AM MAC was used as sedation for this procedure. Brien Santa DO 07/07/2022 6:24:19 AM This report has been signed electronically.
[2022-04-12 09:40] VITALS: BP 113/55; BP 133/69; PULSE 75; RESP 16; O2SAT 97
--- NOTE | 2022-04-12 09:40 | OP.CCLET_ITS ---
07/07/2022 Keegan Wolf [address] [place] [address] Re : Upper GI endoscopy procedure for Anna Sheridandy Dear Dr. Wolf This procedure was performed on Tuesday, April 12, 2022. My impressions and recommendations are as follows: Impressions : - Non-severe reflux esophagitis. Biopsied. - Tortuous esophagus. - Benign-appearing esophageal stenosis. Dilated. - Gastritis. Biopsied. - Normal second portion of the duodenum. Recommendations : - Discharge patient to home. - Resume previous diet. - Continue present medications. - Await pathology results. My findings are described in the full procedure note, which is enclosed. If I can be of further assistance, please feel free to contact me at . Sincerely, Brien Santa, 04/12/2022 9:39:12 AM This report has been signed electronically.
[2022-04-12 09:45] VITALS: BP 115/61; BP 133/69; PULSE 75; RESP 16; O2SAT 100
[2022-04-12 09:53] VITALS: BP 119/69; BP 133/69; PULSE 73; RESP 16; TEMP 36.6; O2SAT 100
[2022-04-12 10:08] VITALS: BP 133/69
== END 2022-04-12 10:09 | disposition home or self-care (01) ==
LOC: EN 08:13 → AC 08:13
PROVIDERS: PCP Student in an Organized Health Care Education/Training Program; Referring Provider Student in an Organized Health Care Education/Training Program; Visit Provider Internal Medicine Gastroenterology
PROC: 0DJ08ZZ Inspection of Upper Intestinal Tract, Via Natural or Artificial Opening Endoscopic (ICD-10-PCS; CPT 43235; principal; 2022-04-12 09:10)
DX: K21.00 Gastro-esophageal reflux disease with esophagitis, without bleeding (principal); K31.A19 Gastric intestinal metaplasia without dysplasia, unspecified site; K29.70 Gastritis, unspecified, without bleeding; K22.2 Esophageal obstruction; R13.10 Dysphagia, unspecified; I10 Essential (primary) hypertension
CPT/HCPCS: 43248; 43239; 88305; 88313; 88341; 88342; J7120; C1769; J2405

== ENCOUNTER 2023-09-20 05:22 | Day surgery (SDC) | payer MEDICARE, SELFPAY ==
--- NOTE | 2023-09-19 | IMM_PTH ---
PATIENT: GISSELLE RATLIFF LOC: EN U#:[id number] AGE/SX: 63/F ROOM: RE09/20/[address]: Dr. Brien Santa DO : 1960 BED: DIS: 09/20/2023 SPEC #: [id number] RECD: 09/20/23 13:59 STATUS: MICHELLE REQ #: [id number] RENARD: 09/19/23 00:[address]: Brien Santa DEPT: IMMUNOHISTOCHEMISTRY RECD BY: Julianna Bermudez ENTERED: 09/20/23 13:59 SP TYPE: IMMUNO OTHR DR: Dr. Keegan Wolf DO Tissues: B - Gastric mucous membrane C - Esophageal mucous membrane Procedures: H Pylori (initial) P53 (initial) KI-67 (add) PHYSICIAN & INSTITUTION [place] [address] SPECIMEN INFORMATION: Tissue Source: B - Gastric antrum biopsy, C - Distal esophagus Clinical Info: Chronic constipation, Emesis, Dysphagia Specimen Number: [id number] B & C CPT code: 55729 x2, 05073 METHODOLOGY: Deparaffinized sections of prefer/formalin-fixed tissue or PAP/DQ stained slides are incubated with monoclonal/polyclonal antibodies/oligonucleotide probes. Localization is made via biotin free immunoperoxidase method. Appropriate controls are performed and reacted as expected. Results on target cell population are indicated in the following table: RESULTS: ANTIBODY / CLONE RESULT Block B H Pylori (polyclonal) negative Block C P53 (DO-7) negative (null pattern) Ki-67 (30-9) positive, low These tests were developed and their performance characteristics determined by [facility]. They may not have been cleared or approved by the U.S. Food and Drug Administration. The FDA has determined that such clearance or approval is not necessary. The above immunohistochemical/dualISH markers are ordered and reviewed by the Pathologist. INTERPRETATION: B. Gastric antrum, biopsy: Negative for Helicobacter pylori organisms. C. Distal esophagus, biopsy: Negative for dysplasia. SJ:bibi 09/22/2023
[2023-09-20 05:54] VITALS: BP 119/67; PULSE 78; RESP 16; TEMP 36.3; O2SAT 100; BMI 29.7
[2023-09-20] MEDS: Lactated Ringers 1,000 ML 15 ML IV (05:56)
--- NOTE | 2023-09-20 06:30 | EGD_PTH ---
PATIENT: GISSELLE RATLIFF LOC: EN U#:[id number] AGE/SX: 63/F ROOM: RE09/20/[address]: Dr. Brien Santa DO : 1960 BED: DIS: 09/20/2023 SPEC #: [id number] RECD: 09/20/23 07:24 STATUS: MICHELLE MARI #: [id number] RENARD: 09/20/23 06:[address]: Brien Santa DEPT: SURGICAL PATHOLOGY RECD BY: Helen Kay ENTERED: 09/20/23 08:54 SP TYPE: EGD BIOPSY OT DR: Dr. Keegan Wolf DO Tissues: A - Duodenum, NOS B - Gastric mucous membrane C - Esophagus, NOS D - COLON BIOPSY E - Cecum, NOS F - COLON BIOPSY Procedures: Special Stain Group II Surgery Specimen Level IV Alcian Blue/PAS (control) HEADER OPERATION: Colonoscopy with biopsies, tattoo, EGD with biopsies PRE-OP DIAGNOSIS: Chronic constipation, emesis, dysphagia TISSUE SUBMITTED: A - Duodenum biopsy, B - Gastric antrum biopsy for H. pylori and path, C - Distal esophagus biopsy, D - Random colon biopsies, E - Cecal polyp biopsy, F - Splenic flexure ulcer biopsy MICROSCOPIC DIAGNOSIS A. Duodenum, biopsy: Fragments of duodenal mucosa, no pathologic diagnosis. B. Gastric antrum, biopsy: Mild gastritis. See microscopic description and comment. C. Distal esophagus, biopsy: Fragments of gastric mucosa with focal intestinal metaplasia (goblet cell metaplasia), consistent with Olsen's esophagus. Chronic inflammation. Negative for dysplasia. See comment. D. Colon, random biopsy: Fragments of colonic mucosa, no pathologic diagnosis. E. Cecal polyp, biopsy: Tubular adenoma. F. Splenic flexure ulcer, biopsy: Fragments of colonic mucosa, no pathologic diagnosis. SJ:bibi 09/21/2023 COMMENT B. The results of immunohistochemistry for Helicobacter pylori will be reported separately ([id number]). C. Immunohistochemistry ([id number]) for P53 and Ki-67 will be performed and results will be reported separately. Alcian blue/PAS stain with matched control is used in the evaluation of the specimen. MICROSCOPIC DESCRIPTION Slides are reviewed. B. The specimen shows fragments of gastric mucosa with chronic inflammatory cell infiltrates in the lamina propria consisting of lymphocytes and plasma cells, consistent with mild chronic gastritis. GROSS DESCRIPTION A - Received in fixative is one container labeled with the patient's name and designated duodenum biopsy. The specimen consists of two irregular fragments of light toure soft tissue that in aggregate measure 0.6 x 0.3 x 0.1 cm. The specimen is totally submitted in one cassette. B - Received in fixative is one container labeled with the patient's name and designated gastric antrum biopsy. The specimen consists of multiple irregular fragments of light toure soft tissue that in aggregate measure 1.0 x 0.3 x 0.1 cm. The specimen is totally submitted in one cassette. C - Received in fixative is one container labeled with the patient's name and designated distal esophagus. The specimen consists of two irregular fragments of light toure soft tissue that in aggregate measure 0.6 x 0.3 x 0.1 cm. The specimen is totally submitted in one cassette. D - Received in fixative is one container labeled with the patient's name and designated random colon biopsy. The specimen consists of multiple irregular fragments of light toure soft tissue that in aggregate measure 2.0 x 0.6 x 0.1 cm. The specimen is totally submitted in one cassette. E - Received in fixative is one container labeled with the patient's name and designated cecal polyp biopsy. The specimen consists of two irregular fragments of light toure soft tissue that in aggregate measure 0.6 x 0.4 x 0.1 cm. The specimen is totally submitted in one cassette. F - Received in fixative is one container labeled with the patient's name and designated splenic flexure ulcer biopsy. The specimen consists of multiple irregular fragments of light toure soft tissue that in aggregate measure 1.0 x 0.3 x 0.1 cm. The specimen is totally submitted in one cassette. / MEGHA:bibi 09/20/2023 TC:1 CPT: 03708 x6, 29926
--- NOTE | 2023-09-20 06:31 | HP.PCM_ITS ---
History and Physical Date of Admission: 09/20/23 63 F who presents to the office today for Prior workup ? CT abd/pel 02.22. stable hepatic cysts; large colonic fecal burden; mildly enlarged lymph nodes *BGI established 5. with dysphagia with food getting stuck requiring repeated swallowing. Recent need for Heimlich intervention several weeks prior. ? EGD 04.12.22 non-severe esophagitis, metaplasia neg; tortuous upper esophagus; esophageal stenosis, Savary 60F; pyloric inflammation, metaplasia +. H.Pylori neg. OV 8.. Start sucralfate. Dysphagia likely r/t extrinsic compression from cervical CLL associated lymphadenopathy. PCP OV 11.29.23 noting difficulty with hot liquids such at tea/coffee. OV 12..23 when she drinks hot liquids cause dry heaves/emesis without nausea. No difficulty with foods. Reports when PCP performed physical exam she had epigastric discomfort with pressure. BM occur every 2-3 days with use of MiraLAX/fiber daily supplement with incomplete evacuation with hard stool, intentionally avoids straining. ROS Const Constitutional: No fatigue, malaise, night sweats, weight change, sleep problems, abnormal sleep pattern or change in appetite ENT ENT: No difficulty swallowing, hoarseness or sore throat Cardio Cardiology: No chest pain at rest Gastro GI: No abdominal pain, belching, bloating, change in bowel habits, change in stool character, coffee ground emesis, constipation, cramping, diarrhea, heartburn, difficulty swallowing, feeling full early, excessive flatus, incontinent of stools, Vomiting blood/hematemesis, Blood in stool, loose stools, Black,tarry stools, nausea/dyspepsia, pain with swallowing, vomiting or other Musc Musculoskeletal: No joint pain Skin Skin: No yellowing of the eye or itchy eyes Neuro Neurology: No behavioral changes Psych Psychiatric: No abnormal sleep pattern, No anxiety, No behavioral changes, No change in appetite and No depression Endo Endocrine: No fatigue or weight change Aller/Imm Allergy/Immunologic: No itchy eyes Speedy/Lymp Hematologic/Lymphatic: No easy bleeding or easy bruising Exam Const General: cooperative and comfortable Nutritional Appearance: average body habitus and well nourished HENMT Head: normal to inspection Ears: hearing grossly normal bilaterally Nose: external nose normal Face and sinus: normal facial exam Mouth: oral mucosae normal Throat: posterior oropharynx normal Eyes General: appearance normal, both eyes and all related structures Neck Neck: normal visual inspection Chest Chest palpation & inspection: normal inspection of the chest and normal palpation of entire chest wall Resp Effort & Inspection: normal respiratory effort Auscultation: Bilateral: Clear to Auscultation Cardio Palpation: normal PMI Rate: regular rate Rhythm: regular rhythm GI Inspection: normal to inspection Auscultation: normal bowel sounds Percussion: normal to percussion Palpation: no hepatosplenomegaly Skin General: no rashes or lesions noted Neuro General: patient alert Extrem General: normal to inspection Psych Affect: normal affect Quality Reporting Tobacco Screening ([facility] 138) Smoking Status: Never smoker Assessment and Plan Assessment and Plan (1) Chronic constipation: Status: Chronic Plan: Chronic idiopathic constipation. Differential diagnosis slow transit constipation versus pelvic floor dysfunction or bowel. She will undergo colonoscopy She needs a colonoscopy less than 10 years. She was explained alternatives, risk, benefits including outstanding bleeding, infection, sepsis, perforation, need emergent. She will have an ASA of 3. (2) Emesis: Status: Chronic Qualifiers: Nausea presence: with nausea Vomiting type: psychogenic vomiting Qualified Code(s): F50.89 - Other specified eating disorder Plan: Differential diagnosis or liquid associated nausea vomiting is gastroparesis, medication side effect, peptic ulcer disease, gastritis, duodenitis. Also the differential diagnosis is worsening of hiatal hernia. She will undergo an upper endoscopy to evaluate upper GI tract. She was explained alternatives, risk, benefits including not withstanding bleeding, infection, sepsis, perforation, need for emergent. She will have an ASA of 3. (3) Dysphagia: Status: Chronic I have examined the patient and the H&P has been reviewed. There are no clinical changes since date of exam.
[2023-09-20 07:16] VITALS: BP 111/50; BP 119/67; PULSE 93; RESP 16; TEMP 36.1; O2SAT 98
[2023-09-20 07:20] VITALS: BP 115/59; BP 119/67; PULSE 91; RESP 16; O2SAT 97
[2023-09-20 07:25] VITALS: BP 119/67; BP 95/55; PULSE 87; RESP 16; O2SAT 99
--- NOTE | 2023-09-20 07:25 | OP.EGD_ITS ---
Patient Name: Anna Rubio Procedure Date: 09/20/2023 6:20 AM Date of : 1960 Age: 63 Procedure: Upper GI endoscopy Indications: Functional Dyspepsia, Dysphagia Providers: Brien Santa DO Referring MD: Brien Santa DO Medicines: Monitored Anesthesia Care Patient Profile: This is a 63 year old female. Refer to note in patient chart for documentation of history and physical. Patient has symptoms of chronic dysphagia and chronic dyspepsia. Complications: No immediate complications. Procedure: Pre-Anesthesia Assessment: - Prior to the procedure, a History and Physical was performed, and patient medications and allergies were reviewed. The patient is competent. The risks and benefits of the procedure and the sedation options and risks were discussed with the patient. All questions were answered and informed consent was obtained. Patient identification and proposed procedure were verified by the physician in the pre-procedure area. Mental Status Examination: alert and oriented. Airway Examination: normal oropharyngeal airway and neck mobility. Respiratory Examination: clear to auscultation. CV Examination: normal. Prophylactic Antibiotics: The patient does not require prophylactic antibiotics. Prior Anticoagulants: The patient has taken no anticoagulant or antiplatelet agents. ASA Grade Assessment: III - A patient with severe systemic disease. After reviewing the risks and benefits, the patient was deemed in satisfactory condition to undergo the procedure. The anesthesia plan was to use monitored anesthesia care (MAC). Immediately prior to administration of medications, the patient was re-assessed for adequacy to receive sedatives. The heart rate, respiratory rate, oxygen saturations, blood pressure, adequacy of pulmonary ventilation, and response to care were monitored throughout the procedure. The physical status of the patient was re-assessed after the procedure. After obtaining informed consent, the endoscope was passed under direct vision. Throughout the procedure, the patient's blood pressure, pulse, and oxygen saturations were monitored continuously. The Colonoscope was introduced through the mouth, and advanced to the second part of duodenum. The upper GI endoscopy was accomplished without difficulty. The patient tolerated the procedure well. Scope In: 6:39:14 AM Scope Out: 6:45:56 AM Total Procedure Duration Time 0 hours 6 minutes 42 seconds Findings: One benign-appearing, intrinsic mild stenosis was found 20 to 22 cm from the incisors. This stenosis measured 3 cm (in length). The stenosis was traversed. A guidewire was placed and the scope was withdrawn. Dilation was performed with a Savary dilator with no resistance at 54 Fr. The dilation site was examined and showed moderate mucosal disruption. Estimated blood loss was minimal. The Z-line was irregular and was found 38 cm from the incisors. Biopsies were taken with a cold forceps for histology. Verification of patient identification for the specimen was done. Estimated blood loss was minimal. A small hiatal hernia was present. Patchy mildly erythematous mucosa without bleeding was found in the gastric antrum and in the prepyloric region of the stomach. Biopsies were taken with a cold forceps for histology. Verification of patient identification for the specimen was done. Estimated blood loss was minimal. Biopsies were taken with a cold forceps for Helicobacter pylori testing. Verification of patient identification for the specimen was done. Estimated blood loss was minimal. No gross lesions were noted in the duodenal bulb, in the first portion of the duodenum and in the second portion of the duodenum. Biopsies were taken with a cold forceps for histology. Verification of patient identification for the specimen was done. Estimated blood loss was minimal. Impression: - Benign-appearing esophageal stenosis. Dilated. - Z-line irregular, 38 cm from the incisors. Biopsied. - Small hiatal hernia. - Erythematous mucosa in the antrum and prepyloric region of the stomach. Biopsied. - No gross lesions in the duodenal bulb, in the first portion of the duodenum and in the second portion of the duodenum. Biopsied. Recommendation: - Discharge patient to home. - Resume previous diet. - Continue present medications. - Await pathology results. - Repeat upper endoscopy for surveillance. - Return to GI office. Procedure Code(s): --- Professional --- 34467, Esophagogastroduodenoscopy, flexible, transoral; with insertion of guide wire followed by passage of dilator(s) through esophagus over guide wire 01807, 59,51, Esophagogastroduodenoscopy, flexible, transoral; with biopsy, single or multiple CPT copyright 2021 [employer]. All rights reserved. The codes documented in this report are preliminary and upon moth exterminator review may be revised to meet current compliance requirements. Brien Santa DO 09/20/2023 7:23:43 AM This report has been signed electronically. Number of Addenda: 0 Note Initiated On: 09/20/2023 6:20 AM
--- NOTE | 2023-09-20 07:25 | OP.CCLET_ITS ---
09/20/2023 Keegan Wolf [address] [place] [address] Re : Upper GI endoscopy procedure for Anna Sheridandy Dear Dr. Wolf This procedure was performed on Wednesday, September 20, 2023. My impressions and recommendations are as follows: Impressions : - Benign-appearing esophageal stenosis. Dilated. - Z-line irregular, 38 cm from the incisors. Biopsied. - Small hiatal hernia. - Erythematous mucosa in the antrum and prepyloric region of the stomach. Biopsied. - No gross lesions in the duodenal bulb, in the first portion of the duodenum and in the second portion of the duodenum. Biopsied. Recommendations : - Discharge patient to home. - Resume previous diet. - Continue present medications. - Await pathology results. - Repeat upper endoscopy for surveillance. - Return to GI office. My findings are described in the full procedure note, which is enclosed. If I can be of further assistance, please feel free to contact me at . Sincerely, Brien Santa, 09/20/2023 7:23:43 AM This report has been signed electronically.
[2023-09-20 07:31] VITALS: BP 115/58; BP 119/67; PULSE 97; RESP 16; TEMP 36.5; O2SAT 98
--- NOTE | 2023-09-20 07:31 | OP.COLON_ITS ---
Patient Name: Anna Rubio Procedure Date: 09/20/2023 6:46 AM Date of : 1960 Age: 63 Procedure: Colonoscopy Indications: Screening for colorectal malignant neoplasm Providers: Brien Santa DO Referring MD: Brien Santa DO Medicines: Monitored Anesthesia Care Patient Profile: This is a 63 year old female. Refer to note in patient chart for documentation of history and physical. Patient has symptoms of chronic dysphagia and chronic dyspepsia. Last Colonoscopy: date unknown. Unable to locate last colonoscopy report. Complications: No immediate complications. Procedure: Pre-Anesthesia Assessment: - Prior to the procedure, a History and Physical was performed, and patient medications and allergies were reviewed. The patient is competent. The risks and benefits of the procedure and the sedation options and risks were discussed with the patient. All questions were answered and informed consent was obtained. Patient identification and proposed procedure were verified by the physician in the pre-procedure area. Mental Status Examination: alert and oriented. Airway Examination: normal oropharyngeal airway and neck mobility. Respiratory Examination: clear to auscultation. CV Examination: normal. Prophylactic Antibiotics: The patient does not require prophylactic antibiotics. Prior Anticoagulants: The patient has taken no anticoagulant or antiplatelet agents. ASA Grade Assessment: III - A patient with severe systemic disease. After reviewing the risks and benefits, the patient was deemed in satisfactory condition to undergo the procedure. The anesthesia plan was to use monitored anesthesia care (MAC). Immediately prior to administration of medications, the patient was re-assessed for adequacy to receive sedatives. The heart rate, respiratory rate, oxygen saturations, blood pressure, adequacy of pulmonary ventilation, and response to care were monitored throughout the procedure. The physical status of the patient was re-assessed after the procedure. After I obtained informed consent, the scope was passed under direct vision. Throughout the procedure, the patient's blood pressure, pulse, and oxygen saturations were monitored continuously. The Colonoscope was introduced through the anus and advanced to the terminal ileum. The colonoscopy was performed without difficulty. The patient tolerated the procedure well. The quality of the bowel preparation was adequate. The terminal ileum, ileocecal valve, appendiceal orifice, and rectum were photographed. Scope In: 6:48:23 AM Scope Withdrawal Time 0 hours 17 minutes 0 seconds Scope Out: 7:11:32 AM Total Procedure Duration Time 0 hours 23 minutes 9 seconds Findings: The digital rectal exam findings include decreased sphincter tone. Multiple small and large-mouthed diverticula were found in the recto-sigmoid colon and sigmoid colon. An area of mildly congested mucosa was found in the recto-sigmoid colon, in the sigmoid colon and in the transverse colon. Biopsies were taken with a cold forceps for histology. Verification of patient identification for the specimen was done. The pathology specimen was placed into Bottle Number 1. Estimated blood loss was minimal. A single (solitary) six mm ulcer was found at the splenic flexure. No bleeding was present. No stigmata of recent bleeding were seen. Biopsies were taken with a cold forceps for histology. Verification of patient identification for the specimen was done. Area was successfully injected with 5 mL Teressa ink for tattooing. Estimated blood loss: none. An 8 mm polyp was found in the cecum. The polyp was sessile. The polyp was removed with a piecemeal technique using a cold snare. Resection and retrieval were complete. Verification of patient identification for the specimen was done. Estimated blood loss was minimal. The terminal ileum appeared normal. Patchy mild inflammation characterized by erosions and friability was found in the recto-sigmoid colon, in the sigmoid colon and in the descending colon. Biopsies were taken with a cold forceps for histology. Fluid aspiration for histology, Clostridium difficile and ova and parasites was performed. Verification of patient identification for the specimen was done. Estimated blood loss was minimal. Impression: - Decreased sphincter tone found on digital rectal exam. - Diverticulosis in the recto-sigmoid colon and in the sigmoid colon. - Congested mucosa in the recto-sigmoid colon, in the sigmoid colon and in the transverse colon. Biopsied. - A single (solitary) ulcer at the splenic flexure. Biopsied. Injected. - One 8 mm polyp in the cecum, removed piecemeal using a cold snare. Resected and retrieved. - The examined portion of the ileum was normal. Recommendation: - Discharge patient to home. - Resume previous diet. - Continue present medications. - Await pathology results. - Repeat colonoscopy in 5 years for surveillance. Procedure Code(s): --- Professional --- 06152, Colonoscopy, flexible; with removal of tumor(s), polyp(s), or other lesion(s) by snare technique 29592, 59, Colonoscopy, flexible; with biopsy, single or multiple 75234, Colonoscopy, flexible; with directed submucosal injection(s), any substance CPT copyright 2021 [employer]. All rights reserved. The codes documented in this report are preliminary and upon pulp drier review may be revised to meet current compliance requirements. Brien Santa DO 09/20/2023 7:30:32 AM This report has been signed electronically. Number of Addenda: 0 Note Initiated On: 09/20/2023 6:46 AM
--- NOTE | 2023-09-20 07:31 | OP.CCLET_ITS ---
09/20/2023 Keegan Wolf [address] [place] [address] Re : Colonoscopy procedure for Anan Rubio Dear Dr. Wolf This procedure was performed on Wednesday, September 20, 2023. My impressions and recommendations are as follows: Impressions : - Decreased sphincter tone found on digital rectal exam. - Diverticulosis in the recto-sigmoid colon and in the sigmoid colon. - Congested mucosa in the recto-sigmoid colon, in the sigmoid colon and in the transverse colon. Biopsied. - A single (solitary) ulcer at the splenic flexure. Biopsied. Injected. - One 8 mm polyp in the cecum, removed piecemeal using a cold snare. Resected and retrieved. - The examined portion of the ileum was normal. Recommendations : - Discharge patient to home. - Resume previous diet. - Continue present medications. - Await pathology results. - Repeat colonoscopy in 5 years for surveillance. My findings are described in the full procedure note, which is enclosed. If I can be of further assistance, please feel free to contact me at . Sincerely, Brien Santa, 09/20/2023 7:30:32 AM This report has been signed electronically.
[2023-09-20 07:59] VITALS: BP 119/67
== END 2023-09-20 08:00 | disposition home or self-care (01) ==
LOC: EN 05:23 → AC 05:24
PROVIDERS: PCP Student in an Organized Health Care Education/Training Program; Referring Provider Student in an Organized Health Care Education/Training Program; Visit Provider Internal Medicine Gastroenterology
PROC: 0DJD8ZZ Inspection of Lower Intestinal Tract, Via Natural or Artificial Opening Endoscopic (ICD-10-PCS; CPT 45378; principal; 2023-09-20 06:25)
DX: Z12.11 Encounter for screening for malignant neoplasm of colon (principal); C91.10 Chronic lymphocytic leukemia of B-cell type not having achieved remission; M06.9 Rheumatoid arthritis, unspecified; D12.0 Benign neoplasm of cecum; K57.30 Diverticulosis of large intestine without perforation or abscess without bleeding; K44.9 Diaphragmatic hernia without obstruction or gangrene; K22.2 Esophageal obstruction; K30 Functional dyspepsia; K28.7 Chronic gastrojejunal ulcer without hemorrhage or perforation; K59.04 Chronic idiopathic constipation; R13.10 Dysphagia, unspecified; F41.9 Anxiety disorder, unspecified; E78.5 Hyperlipidemia, unspecified; Z79.52 Long term (current) use of systemic steroids; Z78.0 Asymptomatic menopausal state; Z98.1 Arthrodesis status; Z79.899 Other long term (current) drug therapy; Z87.19 Personal history of other diseases of the digestive system; K29.70 Gastritis, unspecified, without bleeding
CPT/HCPCS: 45385; 45381; 45380; 43248; 43239; 87493; 87506; 88305; 88313; 88341; 88342; J7120; A4648; C1769; J2405

== ENCOUNTER → 2023-12-22 | Outpatient (CLI) | payer MEDICARE, SELFPAY ==
--- NOTE | 2023-12-22 12:55 | NM_ITS ---
CLINICAL: 63-year-old female with history of chronic emesis. SEMI-SOLID PHASE 99m Tc SULFUR COLLOID GASTRIC EMPTYING STUDY COMPARISON: None available FINDINGS: The patient was administered 1.1 mCi of 99m Tc sulfur colloid mixed with oatmeal and consumed per os. Image acquisitions in the anterior-posterior projections were obtained for 25.26 minutes. There is prompt visualization of the stomach. There is no gastroesophageal reflux identified. The T ? linear fit was calculated to be 25.26 minutes, (Normal: 12-56 minutes). NM/Gastric Emptying Study IMPRESSION: 1. NORMAL 99m Tc sulfur colloid semi-solid phase (oatmeal) gastric emptying imaging examination. A. There is normal and preserved semi-solid phase gastric emptying compared to normal controls. (Gabrielle et al, J Nucl Med Tech 38: 186, 2010). Electronically Signed: Parviz Adams DO at 23:26 EDT ,
== END | disposition home or self-care (01) ==
LOC: NM 12:48
PROVIDERS: PCP Student in an Organized Health Care Education/Training Program; Referring Provider Internal Medicine Gastroenterology; Visit Provider Internal Medicine Gastroenterology
DX: Z87.19 Personal history of other diseases of the digestive system (principal)
CPT/HCPCS: 78264; A9541

== ENCOUNTER 2024-05-29 05:24 | Day surgery (SDC) | payer MEDICARE, SELFPAY ==
[2024-05-29] VITALS (9 sets, daily range): BP systolic 92–108; BP diastolic 46–66; PULSE 62–82; RESP 10–14; TEMP 36.1–36.6; O2SAT 94–100; BMI 29.7
--- NOTE | 2024-05-29 | GASB_PTH ---
PATIENT: GISSELLE RATLIFF LOC: EN U#:[id number] AGE/SX: 63/F ROOM: RE05/29/[address]: Dr. Brien Santa DO : 1960 BED: DIS: 05/29/2024 SPEC #: [id number] RECD: 05/29/24 07:24 STATUS: MICHELLE REMarina #: [id number] RENARD: 05/29/24 00:[address]: Brien Santa DEPT: SURGICAL PATHOLOGY RECD BY: Christopher Miranda ENTERED: 05/29/24 09:57 SP TYPE: Gastric Bx OTHR DR: Dr. Keegan Wolf DO Tissues: A - Esophageal mucous membrane B - Esophageal mucous membrane C - Gastric mucous membrane Procedures: Special Stain Group I Surgery Specimen Level IV Alcian Blue/PAS (control) HEADER OPERATION: EGD PRE-OP DIAGNOSIS: Dysphagia TISSUE SUBMITTED: A- Distal esophagus biopsy, B- Random esophagus biopsy, C- Gastric body biopsy MICROSCOPIC DIAGNOSIS A. Distal esophagus, biopsy: Fragments of gastroesophageal mucosa with focal intestinal metaplasia (goblet cell metaplasia, consistent with Olsen's esophagus. Moderate acute and chronic inflammation. Negative for dysplasia. See comment. B. Esophagus, random biopsy: Fragments of benign squamous epithelium. A minute fragment of gastric epithelium. Intestinal metaplasia (goblet cell metaplasia) not identified. See comment. C. Gastric body, biopsy: Moderate gastritis. See microscopic description and comment. 05/30/2024 COMMENT A. Alcian blue/PAS stain with matched control is used in the evaluation of the specimen. Immunohistochemistry ([id number]) for P53 and Ki-67 will be performed, and results will be reported separately. B. Alcian blue/PAS stain with matched control is used in the evaluation of the specimen. C. The results of immunohistochemistry for Helicobacter pylori will be reported separately ([id number]). Alcian blue/PAS stain with matched control is used in the evaluation of the specimen. MICROSCOPIC DESCRIPTION Slides are reviewed. C. The specimen shows fragments of gastric mucosa with chronic inflammatory cell infiltrates in the lamina propria consisting of lymphocytes and plasma cells, consistent with moderate chronic gastritis. Focal intestinal metaplasia (goblet cell metaplasia) is also noted. GROSS DESCRIPTION A. Received in fixative is one container labeled with the patient's name and designated Distal esophagus biopsy. The specimen consists of two irregular fragments of light toure soft tissue that in aggregate measure 0.8 x 0.4 x 0.1 cm. The specimen is totally submitted in one cassette. B. Received in fixative is one container labeled with the patient's name and designated Random esophagus biopsy. The specimen consists of multiple irregular fragments of light toure soft tissue that in aggregate measure 1.2 x 0.2 x 0.1 cm. The specimen is totally submitted in one cassette. C. Received in fixative is one container labeled with the patient's name and designated Gastric body biopsy. The specimen consists of two irregular fragments of light toure soft tissue that in aggregate measure 0.8 x 0.6 x 0.1 cm. The specimen is totally submitted in one cassette. SJFreemanmr 05/29/2024 TC:3 [facility]:[id number]
[2024-05-29] MEDS: Lactated Ringers 1,000 ML 15 ML IV (06:08)
--- NOTE | 2024-05-29 06:26 | PCM.PRE.AN2 ---
ASA Classification* ASA Classification ASA Classification: 2 Assessment & Plan Anesthesia* Anesthesia Assessment Anesthesia Assessment: Discussed sedation and/or anesthesia options, risks, benefits, and alternatives with patient/parents/legal guardian/POA. Questions invited. The patient/parents/legal guardian/POA seems to understand and agrees to proceed with anesthesia plan. Reviewed the physical assessment, medical history, allergy history and patient home medications list prior to surgery/procedure/anesthetic and documented any changes. Performed airway and anesthesia risk assessments. Anesthesia Type Anesthesia Type: MAC History Source History Obtained from:: Patient and Chart Anesthesia Focused Assessment* Temperature: 97.7 F Pulse Rate: 62 Blood Pressure: 100/66 Respiratory Rate: 14 Pulse Ox: 100 Airway Assessment Mouth opens: 2 cm Mallampati Score: II Teeth Condition: Intact Neck Range of motion (ROM): Full ROM Focused Labs Anesthesia Preop lab: CBC WBC 44.0 K/mm3 (4.4-11.0) H* 11/04/21 16:42 RBC 4.48 M/mm3 (4.2-5.4) 11/04/21 16:42 Hgb 13.3 g/dL (12.0-15.0) 11/04/21 16:42 Hct 41.7 % (37-47) 11/04/21 16:42 Plt Count 165 K/mm3 (150-450) 11/04/21 16:42 CHEMISTRY Potassium 3.9 mmol/L (3.5-5.1) 11/04/21 16:42 Sodium 139 mmol/L (136-145) 11/04/21 16:42 BUN 17 mg/dL (7-18) 11/04/21 16:42 Creatinine 1.04 mg/dL (0.55-1.02) H 11/04/21 16:42 Glucose 88 mg/dL (74-106) 11/04/21 16:42 COAG Pre-Assessment Diagnosis/Proposed Procedure Planned Operative Procedure(s): EGD Anesthesia History Anesthesia History - needle setter: Anesthesia History - needle setter Hx Hospitalization No 05/24/24 14:08 Any Problems With Anesthesia Yes: N,V HEADACHE 05/24/24 14:08 Cholinesterase deficiency No 05/24/24 14:08 You/Your Family Experience No 05/24/24 14:08 fever (hyperthermia) with Relationship Recent Exposure to Contagious No 05/29/24 06:01 Disease Does patient have nerve No 05/24/24 14:08 stimulator Patient instructed to have device shut off --Does patient have Pacemaker No 05/29/24 06:01 or ICD? When Was Last Pacemaker Check QUESTION #4 FULL TEXT: You/Your Family Experience fever (hyperthermia) with Anesthesia Last Oral Intake Last Oral intake: Last Oral Intake NPO since Meds taken in AM with sips of Yes 05/29/24 06:01 water? Meds patient instructed to PANTOPRAZOLE 05/29/24 06:01 take am of surgery PONV PONV - needle setter: PONV - needle setter Female Yes 05/24/24 14:08 HX of Motion Sickness Yes 05/24/24 14:08 HX of N/V After Surgery Yes 05/24/24 14:08 Non-Smoker Yes 05/24/24 14:08 Duration of Surgery greater No 05/24/24 14:08 than 60 minutes Number of Risk Factors 4 05/24/24 14:08 PONV Score Severe Risk 05/24/24 14:08 Height & Weight Height & Weight: Anesthesia: Height & Weight Height 5 ft 3 in 05/29/24 06:01 Weight: 76 kg 05/29/24 06:01 Body Mass Index (BMI) 29.7 05/29/24 06:01 Respiratory Assessment Respiratory Assessment - needle setter: Respiratory Tract Infection Hx - needle setter Hx Respiratory Tract Infection No 05/24/24 14:08 STOP Sleep Apnea STOP Sleep Apnea - needle setter: STOP Sleep Apnea - needle setter Hx Hypertension No 05/24/24 14:08 Hx Sleep Apnea No 05/24/24 14:08 CPAP No 05/24/24 14:08 BIPAP No 05/24/24 14:08 Do you snore loudly (louder No 05/24/24 14:08 than talking or can be heard Do you often feel tired/ No 05/24/24 14:08 fatigued/ sleepy during daytime? Has anyone observed you stop No 05/24/24 14:08 breathing during sleep? STOP Results Negative 05/24/24 14:08 QUESTION #5 FULL TEXT : Do you snore loudly (louder than talking or can be heard through closed doors)? Tobacco Use History Tobacco Use History - needle setter: Tobacco Use History - needle setter Tobacco Use Smoking Status Never smoker 05/24/24 14:08 Hx Tobacco Use No 05/24/24 14:08 Years Smoking Packs Smoked per Day Smoking Cessation Date was within the last 15 years Hx Smoking Cessation Date Hx Smoking Cessation Counseling Hematologic Medial History Hematologic Hx - needle setter: Hematologic Medical Hx - buck swamper Hx of Blood Transfusion No 05/24/24 14:08 Hx of Transfusion in last 3 No 05/24/24 14:08 Months Date of Last Transfusion (if within last 3 months) Ever experience any problems No 05/24/24 14:08 with transfusion(s)? Specify any problems Hx of Preganancy in last 3 No 05/24/24 14:08 Months Nurse Filling Out Transfusion DSCHRIBER 05/24/24 14:08 & Questions: Date: 05/24/24 05/24/24 14:08 Time: 14:09 05/24/24 14:08 Patient unable to answer at this time (ie. confused, unrespo /Reproduction History /Reproductive History - needle setter: /Reproductive Hx- needle setter Hx Now Gestational Age (in weeks): EDC: Hx Hx Para Hx Section SAB No 05/24/24 14:08 Active Medications Active Medications: Current Medications Generic Name Dose Route Start Last Admin Trade Name Freq PRN Reason Stop Dose Admin Lactated Ringer's 1,000 mls @ 15 mls/hr 05/29/24 05:45 05/29/24 06:08 IV 15 mls/hr .Q48H DENISE Administration PFSH Medical History (Updated 05/24/24 @ 14:12 by Jaky Michelle) Olsen esophagus Constipation History of trigger finger Wears glasses Post-menopausal Anxiety Easy bruising Back pain Injury of head and neck Difficulty swallowing Non-smoker Leg cramps CLL (chronic lymphocytic leukemia) History of stress test Dyslipidemia Hemorrhoids GERD (gastroesophageal reflux disease) Rheumatoid arthritis Headaches, cluster Dysphagia Disorder of bone and cartilage Home Medications ?Medication ?Instructions ?Recorded ?Last Taken ?Type calcium carbonate 600 mg-vitamin 1 tab PO DAILY@0800 01/16/15 05/28/24 History D3 20 mcg (800 unit) tablet (Caltrate with Vitamin D3) celecoxib 200 mg capsule (Celebrex) 200 mg PO DAILY PRN Pain 01/16/15 01/14/17 History cholecalciferol (vitamin D3) 25 1,000 unit PO DAILY 01/16/15 05/28/24 History mcg (1,000 unit) tablet (Vitamin D3) folic acid 1 mg tablet 1 mg PO DAILY@0800 01/16/15 05/28/24 History prednisone 10 mg tablet 10 mg PO DAILY PRN Joint Pain 01/16/15 Unknown History methotrexate sodium 2.5 mg tablet 15 mg PO TU 01/31/17 05/22/24 History hydroxyzine pamoate 25 mg capsule 25 mg PO QHS 02/19/22 05/28/24 History acalabrutinib 100 mg capsule 100 mg PO Q12H CLL 04/07/22 05/28/24 History (Calquence) tramadol 50 mg tablet 50 mg PO Q4H PRN Pain 04/07/22 Unknown History alprazolam 0.5 mg tablet 0.5 mg PO PRN PRN anxiety 09/14/23 05/28/24 History pantoprazole 40 mg tablet,delayed 40 mg PO DAILY 09/14/23 05/29/24 History release hydroxychloroquine 200 mg tablet 300 mg PO DAILYCM 12/02/23 05/28/24 History Allergy/AdvReac Type Severity Reaction Status Date / Time hydrochlorothiazide Allergy Intermediate itching Verified 05/29/24 05:55 meloxicam (From Mobic) Allergy Intermediate unk Verified 05/29/24 05:55 sulfasalazine (From Allergy Intermediate itching Verified 05/29/24 05:55 Azulfidine) hydrocodone bitartrate (From AdvReac Vomiting Verified 05/29/24 05:55 Vicodin) morphine AdvReac Vomiting Verified 05/29/24 05:55 Family History Mother Heart disease COPD (chronic obstructive pulmonary disease) Rheumatoid arthritis Hypertension Cancer Leukemia Diverticulitis Father Heart disease COPD (chronic obstructive pulmonary disease) Grandmother Colon cancer Sister Thyroid disorder Surgical History (Updated 05/24/24 @ 14:12 by Jaky Michelle) Hx of colonoscopy History of esophagogastroduodenoscopy (EGD) Hx of foot surgery History of tonsillectomy and adenoidectomy History of bunionectomy Hx of fusion of cervical spine Hx of total knee replacement H/O total hysterectomy History of carpal tunnel release Social History Smoking Status: Never smoker alcohol intake: current Review of Systems (Anesthesia) ROS Narrative System reviewed and no additional complaints, except as documented.
--- NOTE | 2024-05-29 06:30 | IMM_PTH ---
PATIENT: GISSELLE RATLIFF LOC: EN U#:[id number] AGE/SX: 63/F ROOM: RE05/29/[address]: Dr. Brien Santa DO : 1960 BED: DIS: 05/29/2024 SPEC #: [id number] RECD: 05/29/24 12:02 STATUS: MICHELLE REQ #: [id number] RENARD: 05/29/24 06:[address]: Brien Santa DEPT: IMMUNOHISTOCHEMISTRY RECD BY: Cecilio Stewart ENTERED: 05/29/24 12:03 SP TYPE: IMMUNO OTHR DR: Dr. Keegan Wolf DO Tissues: C - Gastric mucous membrane A - Esophagus, NOS Procedures: H Pylori (initial) P53 (initial) KI-67 (add) PHYSICIAN & INSTITUTION [place] [id number] SPECIMEN INFORMATION: Tissue Source: A- Distal esophagus, C- Gastric body biopsy Clinical Info: Dysphagia Specimen Number: [id number] Delia Roberson CPT code: 82120F5,43052 METHODOLOGY: Deparaffinized sections of prefer/formalin-fixed tissue or PAP/DQ stained slides are incubated with monoclonal/polyclonal antibodies/oligonucleotide probes. Localization is made via biotin free immunoperoxidase method. Appropriate controls are performed and reacted as expected. Results on target cell population are indicated in the following table: RESULTS: ANTIBODY / CLONE RESULT Block A P53 (DO-7) negative (null pattern) Ki-67 (30-9) positive ,low Block C H Pylori (polyclonal) negative These tests were developed and their performance characteristics determined by [facility]. They may not have been cleared or approved by the U.S. Food and Drug Administration. The FDA has determined that such clearance or approval is not necessary. The above immunohistochemical/dualISH markers are ordered and reviewed by the Pathologist. INTERPRETATION: A. Distal esophagus, biopsy: Negative for dysplasia. C. Gastric body, biopsy: Negative for Helicobacter pylori organisms. 06/01/2024
--- NOTE | 2024-05-29 06:39 | HP.PCM_ITS ---
History and Physical Date of Admission: 05/29/24 GISSELLE RATLIFF, is a 63 F who presents to the office today for follow up. Prior workup ?CT abd/pel 02.23.20?stable hepatic cysts; large colonic fecal burden; mildly enlarged lymph nodes *BGI established 02.24.22 with dysphagia with food getting stuck requiring repeated swallowing. Recent need for Heimlich intervention several weeks prior. ?EGD 04.12.22?non-severe esophagitis, metaplasia neg; tortuous upper esophagus; esophageal stenosis, Savary 60F; pyloric inflammation, metaplasia +. H.Pylori neg. OV 05.12.22?Start sucralfate.?Dysphagia likely r/t extrinsic compression from cervical CLL associated lymphadenopathy. PCP OV 08.31.23 noting difficulty with hot liquids such at tea/coffee. OV 09.02.23 when she drinks hot liquids cause dry heaves/emesis without nausea. No difficulty with foods. Reports when PCP performed physical exam she had epigastric discomfort with pressure. BM occur every 2-3 days with use of MiraLAX/fiber daily supplement with incomplete evacuation with hard stool, intentionally avoids straining. Rheumatology established for management of CLL/SLL, RA seropositive and is managed with Enbrel ?EGD/colonoscopy 09.20.23?EGD esophageal stenosis, Savary 52F; irregular Zline, Olsen?s+; small hiatal hernia; gastritis. ? Colonoscopy diverticulosis; splenic flexure ulcer, no path changes; cecal TA polyp; congested mucosa, no path changes ? Stool EP, c.difficile WNL. Contact 10.25.23 with results; continue PPI for Olsen?s. OV 12.02.23 Difficulty swallowing foods like salads or meat, feeling stuck and will need to swallow hard. Small hard bowel movements difficult to pass about every 2 days. Takes mirilax 34 grams at HS and benefiber 1 tbs in the morning. Drinks about 60 oz of water daily. Exercise class 3 mornings a week and walks 30 minutes everyday. Good appetite and intake. GET 3.21.24 normal 25.26 minutes OV 8.16.24 pt reports continued symptoms from previous visit. reports a hard bm every 2-3 days. Notes increased difficulty swallowing again. ROS Const Constitutional: No fatigue, fever(s) or weight change ENT ENT: No difficulty swallowing Gastro GI: Positive for constipation and heartburn; No abdominal pain, belching, bloating, change in bowel habits, change in stool character, coffee ground emesis, cramping, diarrhea, difficulty swallowing, feeling full early, excessive flatus, incontinent of stools, Vomiting blood/hematemesis, Blood in stool, loose stools, Black,tarry stools, nausea/dyspepsia, pain with swallowing, vomiting or other Musc Musculoskeletal: Positive for joint pain, joint swelling, stiffness and Arthri tis Skin Skin: Positive for dry skin; No yellowing of the eye or itchy eyes Psych Psychiatric: Positive for anxiety and No depression Endo Endocrine: No fatigue or weight change Aller/Imm Allergy/Immunologic: No itchy eyes Speedy/Lymp Hematologic/Lymphatic: Positive for easy bruising; No easy bleeding Exam Const General: cooperative and comfortable Nutritional Appearance: average body habitus and well nourished [facility] Head: normal to inspection Ears: hearing grossly normal bilaterally Nose: external nose normal Face and sinus: normal facial exam Mouth: oral mucosae normal Throat: posterior oropharynx normal Eyes General: appearance normal, both eyes and all related structures Neck Neck: normal visual inspection Chest Chest palpation & inspection: normal inspection of the chest and normal palpation of entire chest wall Resp Effort & Inspection: normal respiratory effort Auscultation: Bilateral: Clear to Auscultation Cardio Palpation: normal PMI Rate: regular rate Rhythm: regular rhythm GI Inspection: normal to inspection Auscultation: normal bowel sounds Percussion: normal to percussion Palpation: no hepatosplenomegaly Skin General: no rashes or lesions noted Neuro General: patient alert Extrem General: normal to inspection Psych Affect: normal affect Assessment and Plan Assessment and Plan (1) Chronic constipation: Status: Chronic Plan: Chronic idiopathic constipation. Differential diagnosis slow transit constipation versus pelvic floor dysfunction or bowel. She will undergo colonoscopy She needs a colonoscopy less than 10 years. She was explained alternatives, risk, benefits including outstanding bleeding, infection, sepsis, perforation, need emergent. She will have an ASA of 3. She underwent colonoscopy to the terminal ileum. Random biopsies in the colon revealed melanosis coli consistent with chronic idiopathic constipation. There were no signs of CLL in her lower GI tract. There was also 1 tubular adenoma which was 7 mm in the sigmoid colon which was removed. There is no dysplasia and a colon polyp. She is taking 34 g of MiraLAX a day and on most days does okay with that. She is not straining. She requires no manual disimpaction or maneuvers in order to have a bowel movement. She is watching her diet which is also helping her bowel movements. (2) Emesis: Status: Chronic Qualifiers: Nausea presence: with nausea Vomiting type: psychogenic vomiting Qualified Code(s): F50.89 - Other specified eating disorder Plan: Differential diagnosis or liquid associated nausea vomiting is gastroparesis, medication side effect, peptic ulcer disease, gastritis, duodenitis. Also the differential diagnosis is worsening of hiatal hernia. She will undergo an upper endoscopy to evaluate upper GI tract. She was explained alternatives, risk, benefits including not withstanding bleeding, infection, sepsis, perforation, need for emergent. She will have an ASA of 3. She also underwent an upper endoscopy and was discovered to have showed segment Olsen's esophagus secondary to bile reflux esophagitis and bile reflux gastritis. I suspect that she has elements of gastroparesis due to the small inability of her stomach to not contract appropriately with CO2 insufflation do an upper endoscopy. We will order gastric emptying study (3) Dysphagia: Status: Chronic Plan: . Her esophageal dysphagia was associated with sliding hiatal hernia and also a distal to mid esophageal stricture secondary to erosive esophagitis from bile induced esophagitis. Will put her back on her PPI and we will perform an upper endoscopy to evaluate upper GI tract to see if we can further dilate her esophagus. I have examined the patient and the H&P has been reviewed. There are no clinical changes since date of exam.
--- NOTE | 2024-05-29 06:54 | POSTOPAN2_ITS ---
Anesthesia Postop Eval I Sum Postop Eval Completion status Anesthesia document: Postop Eval 1 completed: Yes Anesthesia Postop Eval I Summary Anesthesia Postop Eval I Summary: Anesthesia Postop Eval I: Assessment Summary Airway patent Yes 05/29/24 06:54 HOST [email or web address] Spontaneous unlabored Yes 05/29/24 06:54 HOST [email or web address] respirations Mental status Awake,Calm 05/29/24 06:54 HOST [email or web address] nausea No 05/29/24 06:54 HOST [email or web address] Vomiting No 05/29/24 06:54 HOST [email or web address] Anesthesia Postop Eval I: Fluid Summary Crystalloid volume administer 400 05/29/24 06:54 HOST [email or web address].MDOT (ml) Colloids volume administered ( ml) Blood Product volume administered (ml) Total IV fluid infused 400 05/29/24 06:54 HOST [email or web address] Anesthesia Postop Eval I: Summary Notes Anesthesia Complication No 05/29/24 06:54 HOST [email or web address] Anesthesia Complication Comment: Post-operative progress note Anesthesia: Postop Eval II Evaluation Mental status: Awake and Calm Pain Level: 0 nausea: No Vomiting: No Complications Anesthesia Complication: No
--- NOTE | 2024-05-29 06:54 | PCM.POST.ANE ---
Anesthesia: Postop Eval I Current Vital Signs Temperature: 97 F Pulse Rate: 77 Blood Pressure: 92/46 Respiratory Rate: 10 Pulse Ox: 94 Oxygen Delivery Method: Room Air Assessment Airway patent: Yes Spontaneous unlabored respirations: Yes Mental status: Awake and Calm nausea: No Vomiting: No Anesthesia Complication: No Fluid Hydration Crystalloid volume administer (ml): 400 Total IV fluid infused: 400 Progress Note Anesthesia document: Postop Eval 1 completed: Yes
--- NOTE | 2024-05-29 06:54 | PCM.POSTANE2 ---
Anesthesia Postop Eval I Sum Postop Eval Completion status Anesthesia document: Postop Eval 1 completed: Yes Anesthesia Postop Eval I Summary Anesthesia Postop Eval I Summary: Anesthesia Postop Eval I: Assessment Summary Airway patent Yes 05/29/24 06:54 JAVA ANDROID [email or web address] Spontaneous unlabored Yes 05/29/24 06:54 JAVA ANDROID [email or web address].MDOT respirations Mental status Awake,Calm 05/29/24 06:54 JAVA ANDROID [email or web address].MDOT nausea No 05/29/24 06:54 JAVA ANDROID [email or web address].MDOT Vomiting No 05/29/24 06:54 JAVA ANDROID [email or web address].MDOT Anesthesia Postop Eval I: Fluid Summary Crystalloid volume administer 400 05/29/24 06:54 JAVA ANDROID DEVELOPER.MDOT (ml) Colloids volume administered ( ml) Blood Product volume administered (ml) Total IV fluid infused 400 05/29/24 06:54 JAVA ANDROID DEVELOPER.MDOT Anesthesia Postop Eval I: Summary Notes Anesthesia Complication No 05/29/24 06:54 JAVA ANDROID [email or web address].MDOT Anesthesia Complication Comment: Post-operative progress note Anesthesia: Postop Eval II Evaluation Mental status: Awake and Calm Pain Level: 0 nausea: No Vomiting: No Complications Anesthesia Complication: No
--- NOTE | 2024-05-29 06:59 | OP.CCLET_ITS ---
05/29/2024 Keegan Wolf [address] [place] [address] Re : Upper GI endoscopy procedure for Anna Sheridandy Dear Dr. Wolf This procedure was performed on Wednesday, May 29, 2024. My impressions and recommendations are as follows: Impressions : - Abnormal esophageal motility, suspicious for esophageal spasm. - Z-line irregular, 40 cm from the incisors. Biopsied. - Moderate Schatzki ring. Dilated. - Small hiatal hernia. - Erythematous mucosa in the gastric body. Biopsied. - No gross lesions in the second portion of the duodenum. Recommendations : - Discharge patient to home. - Soft diet today. - Continue present medications. - Await pathology results. My findings are described in the full procedure note, which is enclosed. If I can be of further assistance, please feel free to contact me at . Sincerely, Brien Friend, 05/29/2024 6:57:52 AM This report has been signed electronically.
--- NOTE | 2024-05-29 06:59 | OP.EGD_ITS ---
Patient Name: Anna Rubio Procedure Date: 05/29/2024 6:14 AM Date of : 1960 Age: 63 Procedure: Upper GI endoscopy Indications: Dyspepsia, Dysphagia Providers: Brien Santa DO Referring MD: Brien Santa DO Medicines: Monitored Anesthesia Care Patient Profile: This is a 63 year old female. Refer to note in patient chart for documentation of history and physical. Patient has symptoms of chronic dysphagia and dysphagia with both liquids and solids. Complications: No immediate complications. Procedure: Pre-Anesthesia Assessment: - Prior to the procedure, a History and Physical was performed, and patient medications and allergies were reviewed. The patient is competent. The risks and benefits of the procedure and the sedation options and risks were discussed with the patient. All questions were answered and informed consent was obtained. Patient identification and proposed procedure were verified by the physician in the pre-procedure area. Mental Status Examination: alert and oriented. Airway Examination: normal oropharyngeal airway and neck mobility. Respiratory Examination: clear to auscultation. CV Examination: normal. Prophylactic Antibiotics: The patient does not require prophylactic antibiotics. Prior Anticoagulants: The patient has taken no anticoagulant or antiplatelet agents except for NSAID medication. ASA Grade Assessment: II - A patient with mild systemic disease. After reviewing the risks and benefits, the patient was deemed in satisfactory condition to undergo the procedure. The anesthesia plan was to use monitored anesthesia care (MAC). Immediately prior to administration of medications, the patient was re-assessed for adequacy to receive sedatives. The heart rate, respiratory rate, oxygen saturations, blood pressure, adequacy of pulmonary ventilation, and response to care were monitored throughout the procedure. The physical status of the patient was re-assessed after the procedure. After obtaining informed consent, the endoscope was passed under direct vision. Throughout the procedure, the patient's blood pressure, pulse, and oxygen saturations were monitored continuously. The Endoscope was introduced through the mouth, and advanced to the second part of duodenum. The upper GI endoscopy was accomplished without difficulty. The patient tolerated the procedure well. Scope In: 6:43:35 AM Scope Out: 6:50:59 AM Total Procedure Duration Time 0 hours 7 minutes 24 seconds Findings: Abnormal motility was noted in the lower third of the esophagus. The cricopharyngeus was normal. There is spasticity of the esophageal body. The distal esophagus/lower esophageal sphincter is spastic, but gives up passage to the endoscope. Secondary peristaltic waves are noted. The Z-line was irregular and was found 40 cm from the incisors. Biopsies were taken with a cold forceps for histology. Verification of patient identification for the specimen was done. Estimated blood loss was minimal. A moderate Schatzki ring was found at the gastroesophageal junction. A guidewire was placed and the scope was withdrawn. Dilation was performed with a Savary dilator with no resistance at 54 Fr. The dilation site was examined and showed moderate mucosal disruption. Estimated blood loss was minimal. A small hiatal hernia was present. Diffuse mildly erythematous mucosa without bleeding was found in the gastric body. Biopsies were taken with a cold forceps for histology. Verification of patient identification for the specimen was done. Estimated blood loss was minimal. Biopsies were taken with a cold forceps for Helicobacter pylori testing. Verification of patient identification for the specimen was done. Estimated blood loss was minimal. No gross lesions were noted in the second portion of the duodenum. Impression: - Abnormal esophageal motility, suspicious for esophageal spasm. - Z-line irregular, 40 cm from the incisors. Biopsied. - Moderate Schatzki ring. Dilated. - Small hiatal hernia. - Erythematous mucosa in the gastric body. Biopsied. - No gross lesions in the second portion of the duodenum. Recommendation: - Discharge patient to home. - Soft diet today. - Continue present medications. - Await pathology results. Procedure Code(s): --- Professional --- 44329, Esophagogastroduodenoscopy, flexible, transoral; with insertion of guide wire followed by passage of dilator(s) through esophagus over guide wire 16548, 59,51, Esophagogastroduodenoscopy, flexible, transoral; with biopsy, single or multiple CPT copyright 2021 [employer]. All rights reserved. The codes documented in this report are preliminary and upon centrifugal screen tender review may be revised to meet current compliance requirements. Brien Santa DO 05/29/2024 6:57:52 AM This report has been signed electronically. Number of Addenda: 0 Note Initiated On: 05/29/2024 6:14 AM
== END 2024-05-29 07:29 | disposition home or self-care (01) ==
LOC: EN 05:28 → AC 05:28
PROVIDERS: PCP Student in an Organized Health Care Education/Training Program; Referring Provider Student in an Organized Health Care Education/Training Program; Visit Provider Internal Medicine Gastroenterology
PROC: 0DJ08ZZ Inspection of Upper Intestinal Tract, Via Natural or Artificial Opening Endoscopic (ICD-10-PCS; CPT 43235; principal; 2024-05-29 06:25)
DX: K22.70 Barrett's esophagus without dysplasia (principal); C91.10 Chronic lymphocytic leukemia of B-cell type not having achieved remission; K44.9 Diaphragmatic hernia without obstruction or gangrene; F41.9 Anxiety disorder, unspecified; K59.04 Chronic idiopathic constipation; F50.89 Other specified eating disorder; K21.00 Gastro-esophageal reflux disease with esophagitis, without bleeding; K29.70 Gastritis, unspecified, without bleeding; K22.2 Esophageal obstruction; K22.4 Dyskinesia of esophagus; Z79.52 Long term (current) use of systemic steroids; Z79.899 Other long term (current) drug therapy; E78.5 Hyperlipidemia, unspecified
CPT/HCPCS: 43248; 43239; 88305; 88312; 88341; 88342; J7120; C1769

== ENCOUNTER → 2024-07-19 | Outpatient (CLI) | payer MEDICARE, SELFPAY ==
--- NOTE | 2024-07-19 13:25 | RAD_ITS ---
INDICATION: L PARASCAPULAR PAIN EXAMINATION/TECHNIQUE: X-RAY - LEFT XR Scapula 3 VIEWS COMPARISON: None. FINDINGS: SOFT TISSUES: No soft tissue swelling or gas. No radiopaque foreign body. BONES/JOINTS: No acute fracture. Joint spaces anatomically maintained. No sclerotic or destructive changes observed. RAD/Scapula IMPRESSION: Unremarkable study. Electronically Signed: Zaheer Perez MD at 15:28 EDT ,
--- NOTE | 2024-07-19 13:25 | RAD_ITS ---
INDICATION: L PARASCAPULAR PAIN EXAMINATION/TECHNIQUE: X-RAY - XR Chest 2 Views COMPARISON: No relevant prior comparison study available FINDINGS: LINES/DEVICES: None. LUNGS: No consolidation. No pneumothorax. MEDIASTINUM: Unremarkable. CARDIAC SILHOUETTE: Not enlarged. BONES AND SOFT TISSUES: No acute abnormalities. Mild curvature of the spine. RAD/Chest PA and Lateral IMPRESSION: No evidence of active intrathoracic disease. Electronically Signed: Casandra Gutierrez MD at 22:31 EDT ,
== END | disposition home or self-care (01) ==
LOC: RAD 13:12
PROVIDERS: PCP Student in an Organized Health Care Education/Training Program; Referring Provider Anesthesiology; Visit Provider Anesthesiology
DX: M25.512 Pain in left shoulder (principal)
CPT/HCPCS: 71046; 73010

== ENCOUNTER 2024-08-03 16:00 | Outpatient (RCR) | payer MEDICARE, SELFPAY | END 2024-08-03 19:00 | disposition home or self-care (01) | LOC: PT 16:00 | PROVIDERS: PCP Student in an Organized Health Care Education/Training Program; Referring Provider Emergency Medicine; Visit Provider Emergency Medicine | DX: M54.12 Radiculopathy, cervical region (principal) | CPT/HCPCS: 97035; 97140; 97162 ==

== ENCOUNTER 2025-05-08 09:33 | Emergency (ER) | payer MEDICARE, SELFPAY ==
[2025-05-08 09:34] VITALS: BP 127/59; PULSE 66; RESP 15; TEMP 36.4; O2SAT 100; BMI 25.8
--- NOTE | 2025-05-08 09:56 | CT_ITS ---
PROCEDURE: BRAIN/HEAD WITHOUT CONTRAST 05/08/2025 REASON FOR EXAM: INJURY/PAIN TECHNIQUE: BRAIN/HEAD WITHOUT CONTRAST Coronal and Sagittal reconstruction series were provided. One or more dose reduction techniques were used (e.g., Automated exposure control, adjustment of the mA and/or kV according to patient size, use of iterative reconstruction technique. RADIATION DOSE SUMMARY: CTDlvol: 44.99 mGy DLP: 779.24 mGycm COMPARISON: None FINDINGS: Brain: Within normal limits for age CSF Spaces: Mild generalized cerebral atrophy Sinuses/Mastoids: Small air-fluid level in the left maxillary sinus. Bones: CT/Brain/Head without Contrast IMPRESSION: NO ACUTE FINDINGS Small air-fluid level in the left maxillary sinus. Reading Location: [id number]
--- NOTE | 2025-05-08 09:56 | CT_ITS ---
PROCEDURE: SPINE CERVICAL WITHOUT CONTRAS 05/08/2025 REASON FOR EXAM: INJURY/PAIN TECHNIQUE: SPINE CERVICAL WITHOUT CONTRAS Coronal and Sagittal reconstruction series were provided. One or more dose reduction techniques were used (e.g., Automated exposure control, adjustment of the mA and/or kV according to patient size, use of iterative reconstruction technique. RADIATION DOSE SUMMARY: CTDlvol: 15.09 mGy DLP: 285.35 mGycm COMPARISON: None FINDINGS: Alignment: Unremarkable Vertebrae: Prior anterior fusion and disc placement at the C6-C7 level. Soft Tissues: Atherosclerotic plaque formation of the carotid bifurcations. Other: C1-2: Unremarkable C2-3: Unremarkable C3-4: Unremarkable C4-5: Unremarkable C5-6: Marked degree of disc space narrowing. Facet joint osteoarthritis and hypertrophy. Uncovertebral arthrosis. Mild bilateral neural foraminal stenosis worse on the left side. C6-7: Status post intrapedicular screw and plate fixation. Prosthetic disc. Uncovertebral arthrosis. Mild bilateral neural foraminal stenosis. C7-T1: Unremarkable CT/Spine Cervical without Contras IMPRESSION: DEGENERATIVE CHANGES OF THE CERVICAL SPINE. NO EVIDENCE OF SIGNIFICANT OSSEOUS CENTRAL CANAL OR NEURAL FORAMINAL STENOSIS. Reading Location: [facility]
--- NOTE | 2025-05-08 09:56 | EKG12_ITS ---
Test Reason : CHEST PAIN Blood Pressure : */* mmHG Vent. Rate : 64 BPM Atrial Rate : 64 BPM P-R Int : 208 ms QRS Dur : 78 ms QT Int : 414 ms P-R-T Axes : 64 23 48 degrees QTcB Int : 427 ms Normal sinus rhythm Normal ECG Confirmed by PEPE SALAZAR, ABIMAEL ([id number]), business editor KAREL ZUÑIGA ([id number]) on 05/09/2025 9:27:24 AM Referred By: Confirmed By: ABIMAEL CANTU MD
--- NOTE | 2025-05-08 09:57 | EX.ED.DYSGE1 ---
HPI History of Present Illness Chief Complaint: Syncope Informant: patient Onset/Context/Timing Onset: Today Context: Gradual Onset Timing: Continuous Quality: Lightheaded, queasy Location: Generalized Worsened by: Nothing Relieved by: Nothing Narrative Narrative: Patient presents with a syncopal episode that occurred today. Patient states she was feeling lightheaded and queasy. Patient states she felt like she needed to drink a Diet Coke. Patient states she was trying to go to sit down on the chair when she passed out. Patient was unconscious for approximately 2 to 3 minutes. Patient hit the left side of her head. Patient also complains of pain in her neck. Patient denies any palpitations. Patient denies any nausea or vomiting. Patient denies any shortness of breath. Patient denies any chest pain. [facility] Medical History Olsen esophagus Constipation History of trigger finger Wears glasses Post-menopausal Anxiety Easy bruising Back pain Injury of head and neck Difficulty swallowing Non-smoker Leg cramps CLL (chronic lymphocytic leukemia) History of stress test Dyslipidemia Hemorrhoids GERD (gastroesophageal reflux disease) Rheumatoid arthritis Headaches, cluster Dysphagia Disorder of bone and cartilage Home Medications ?Medication ?Instructions ?Recorded ?Last Taken ?Type calcium 600 mg (as 1 tab PO Q12H 01/16/15 05/28/24 History carbonate)-vitamin D3 20 mcg (800 unit) tablet (Caltrate with Vitamin D3) celecoxib 200 mg capsule (Celebrex) 200 mg PO DAILY PRN Pain 01/16/15 01/14/17 History cholecalciferol (vitamin D3) 25 1,000 unit PO DAILY 01/16/15 05/28/24 History mcg (1,000 unit) tablet (Vitamin D3) folic acid 1 mg tablet 1 mg PO DAILY@0800 01/16/15 05/28/24 History prednisone 10 mg tablet 10 mg PO DAILY PRN Joint Pain 01/16/15 Unknown History methotrexate sodium 2.5 mg tablet 15 mg PO 01/31/17 05/22/24 History hydroxyzine pamoate 25 mg capsule 25 mg PO QHS 02/19/22 05/28/24 History acalabrutinib 100 mg capsule 100 mg PO Q12H CLL 04/07/22 05/28/24 History (Calquence) tramadol 50 mg tablet 50 mg PO Q4H PRN Pain 04/07/22 Unknown History alprazolam 0.5 mg tablet 0.5 mg PO PRN PRN anxiety 09/14/23 05/28/24 History hydroxychloroquine 200 mg tablet 1,500 mg PO DAILYCM 12/02/23 05/28/24 History pantoprazole 40 mg tablet,delayed 40 mg PO BID #180 tabs 11/12/24 Unknown Rx release magnesium citrate 125 mg capsule 250 mg PO QDAY 03/04/25 Unknown History plecanatide 3 mg tablet (Trulance) 3 mg PO QDAY #30 tabs 03/04/25 Unknown Rx albuterol 90 mcg/actuation aerosol 90 mcg inhalation Q4H PRN PRN 05/08/25 Unknown History inhaler shortness of breath Allergy/AdvReac Type Severity Reaction Status Date / Time hydrochlorothiazide Allergy Intermediate itching Verified 05/08/25 09:38 meloxicam (From Mobic) Allergy Intermediate unk Verified 05/08/25 09:38 sulfasalazine (From Allergy Intermediate itching Verified 05/08/25 09:38 Azulfidine) hydrocodone bitartrate (From AdvReac Vomiting Verified 05/08/25 09:38 Vicodin) morphine AdvReac Vomiting Verified 05/08/25 09:38 Family History Mother Heart disease COPD (chronic obstructive pulmonary disease) Rheumatoid arthritis Hypertension Cancer Leukemia Diverticulitis Father Heart disease COPD (chronic obstructive pulmonary disease) Grandmother Colon cancer Sister Thyroid disorder Surgical History Hx of colonoscopy History of esophagogastroduodenoscopy (EGD) Hx of foot surgery History of tonsillectomy and adenoidectomy History of bunionectomy Hx of fusion of cervical spine Hx of total knee replacement H/O total hysterectomy History of carpal tunnel release Social History Smoking Status: Never smoker alcohol intake: current ROS ROS ED Constitutional Constitutional ED: Denies chills or fever(s) Eyes Eyes: Denies blurry vision or change in vision ENT ENT ED: Denies rhinorrhea or sore throat Cardiovascular Cardiovascular: Denies chest pain or palpitations Respiratory/Chest Respiratory/Chest: Denies cough or dyspnea Gastrointestinal Gastrointestinal: Denies nausea or vomiting Genitourinary Genitourinary ED: Denies dysuria or hematuria Musculoskeletal Musculoskeletal: Reports neck pain; Denies back pain Integumentary Denies abscess or rash Neurologic Neurologic: Reports headache(s); Denies weakness Allergic/Immunologic Allergic/Immunologic ED: Denies mouth swelling or urticaria EXAM Physical Exam Const Vital Signs: 05/08/25 09:34 05/08/25 10:16 05/08/25 10:33 Temperature 97.5 F L Temperature Source Oral Pulse Rate 66 62 Pulse Rate [Lying] 65 Pulse Rate [Sitting (for 1 minute prior to obtaining)] 70 Pulse Rate [Standing (for 1 minute prior to obtaining)] 77 Respiratory Rate 15 Blood Pressure 127/59 H 127/56 H Blood Pressure [Lying] 122/62 H Blood Pressure [Sitting (for 1 minute prior to obtaining)] 138/71 H Blood Pressure [Standing (for 1 minute prior to obtaining)] 123/66 H Blood Pressure Mean 81 79 Blood Pressure Mean [Lying] 82 Blood Pressure Mean [Sitting (for 1 minute prior to obtaining)] 93 Blood Pressure Mean [Standing (for 1 minute prior to obtaining)] 85 Pulse Ox 100 Oxygen Delivery Method Room Air 05/08/25 11:00 Temperature Temperature Source Pulse Rate 68 Pulse Rate [Lying] Pulse Rate [Sitting (for 1 minute prior to obtaining)] Pulse Rate [Standing (for 1 minute prior to obtaining)] Respiratory Rate 17 Blood Pressure 119/63 Blood Pressure [Lying] Blood Pressure [Sitting (for 1 minute prior to obtaining)] Blood Pressure [Standing (for 1 minute prior to obtaining)] Blood Pressure Mean 81 Blood Pressure Mean [Lying] Blood Pressure Mean [Sitting (for 1 minute prior to obtaining)] Blood Pressure Mean [Standing (for 1 minute prior to obtaining)] Pulse Ox 100 Oxygen Delivery Method Positive well nourished and well developed Constitutional Narrative: BMI is 25.8. General Appearance ED: well developed and NAD HEENT Reports moist mucous membranes trauma Eyes PERRL and EOMs intact bilaterally Neck supple and no JVD Neck Narrative: There is mild tenderness of the cervical spine and left paraspinal muscles. There is no bony crepitance or step-off. Range of motion is slightly limited in all motions secondary to pain. General: tenderness Resp normal respiratory effort and clear to auscultation bilaterally Cardio regular rate and regular rhythm GI non-tender and non-distended Palpation: soft Neuro oriented x3, CN's II-XII intact bilaterally and no sensory deficits noted Sensorium / Orientation: alert Motor Exam: strength 5/5 throughout Psych mental status grossly normal Skin Skin Narrative: There is a superficial abrasion over the left lateral periorbital area and left chin. There is no active bleeding noted. There is no bony crepitance or step-off. MDM MDM MDM Narrative Medical decision making narrative: Differential diagnosis includes vasovagal syncope, dehydration, electrolyte abnormality, intracranial bleeding, hypovolemia, and urinary tract infection. CBC will be obtained to assess for leukocytosis and anemia. Basic metabolic profile will be obtained to assess for electrolyte abnormality and renal function. PT with INR and PTT will be obtained to assess for coagulopathy. Urinalysis will be obtained to assess for urinary tract infection and hematuria. CT scan of the brain will be obtained to assess for intracranial bleeding and stroke. CT scan of the cervical spine will be obtained to assess for fracture and spondylolisthesis. EKG will be obtained to assess for cardiac dysrhythmia and cardiac ischemia. History & Record Review Additional record(s) reviewed:: Prior outpatient record and Prior labs Lab Data Attestation: I reviewed the patient's lab results. Lab results narrative: CBC was reviewed and was within normal limits. Basic metabolic profile was reviewed and was within normal limits. PT with INR and PTT were reviewed. Pro time was 15.1 and INR is 1.2. PTT was normal at 30.5. Urinalysis was reviewed. There is no evidence of urinary tract infection or hematuria. Labs: Laboratory Results - last 24 hr 05/08/25 05/08/25 10:14 11:25 WBC 5.9 RBC 4.79 Hgb 13.6 Hct 42.5 MCV 88.7 MCH 28.4 MCHC 32.0 RDW Std Deviation 53.1 H RDW Coeff of Christopher 16.5 H Plt Count 163 MPV 10.8 Immature Gran % (Auto) 0.300 Neut % (Auto) 72.9 H Lymph % (Auto) 17.2 L [place] % (Auto) 7.4 Eos % (Auto) 1.2 Baso % (Auto) 1.0 Absolute Neuts (auto) 4.3 Absolute Lymphs (auto) 1.02 Nucleated RBC % 0 PT 15.1 H INR 1.2 APTT 30.5 Sodium 140 Potassium 4.3 Chloride 105 Carbon Dioxide 22.5 Anion Gap 13 BUN 25 H Creatinine 0.93 Estim Creat Clear Calc 54.37 Est GFR (MDRD) Non-Af 68 BUN/Creatinine Ratio 26.6 H Glucose 103 H Calcium 9.4 Urine Color Yellow Urine Clarity Clear Urine pH 6.0 Ur Specific Ethel 1.020 Urine Protein 30 H Urine Glucose (UA) Normal Urine Ketones 15 H Urine Occult Blood 10 H Urine Nitrite Negative Urine Bilirubin Negative Urine Urobilinogen Normal Ur Leukocyte Esterase Negative Urine RBC 0-5 SEEN Urine WBC 0 SEEN Ur Squamous Epith Cells 0 SEEN Urine Bacteria 0 SEEN Urine Mucus 0 SEEN Radiography Diagnostic Testing: Clinical Impression(s) from Imaging Studies Brain CT 05/08/25 09:56 IMPRESSION: NO ACUTE FINDINGS Small air-fluid level in the left maxillary sinus. Reading Location: [id number] Cervical Spine CT 05/08/25 09:56 IMPRESSION: DEGENERATIVE CHANGES OF THE CERVICAL SPINE. NO EVIDENCE OF SIGNIFICANT OSSEOUS CENTRAL CANAL OR NEURAL FORAMINAL STENOSIS. Reading Location: [facility] CT scan of the brain was obtained. There is no acute intracranial abnormality. There is a small air-fluid level in the left maxillary sinus. There is no orbital fracture noted. This was interpreted by the radiologist and was also independently reviewed by myself. CT scan of the cervical spine was obtained. There is no acute fracture or spondylolisthesis. There is no soft tissue swelling. There are some degenerative changes noted. There is no evidence of canal or foraminal stenosis. This was interpreted by the radiologist and was also independently reviewed by myself. EKG Initial EKG: Attestation: I personally reviewed and interpreted this EKG as follows: Interpretation: Sinus Rhythm (64) and No Acute Injury Pattern Comments: EKG was obtained. On my independent interpretation, it showed a normal sinus rhythm with a rate of 64. [place] interval, QRS interval, and QTc intervals were all normal. [place] was normal. There are no acute ST or T wave changes. Prior EKG tracings: available for review Prior: Unchanged (01/16/2015) Treatment and Re-Evaluation :: Patient was given IV fluids. Orthostatic vital signs were reviewed and were within normal limits. Patient was feeling better on reevaluation. Patient was advised of her findings. Patient was instructed to follow-up with her primary care physician in 5 to 7 days. Patient was instructed to return if worse in any way. Patient understood and was agreeable with the plan. All questions were answered. Discharge Plan Triage Chief Complaint: Syncope ED Provider: Lm Zarate Dx/Rx/DC Orders Clinical Impression: Syncope and collapse, Contusion of face Instructions: ED Facial Contusion, ED Fainting, Uncertain Cause Prescriptions: No Action hydroxyzine pamoate 25 mg capsule 25 mg PO QHS magnesium citrate 125 mg capsule 250 mg PO QDAY Trulance 3 mg tablet 3 mg PO QDAY Qty: 30 3RF celecoxib [Celebrex] 200 MG capsule 200 mg PO DAILY PRN (Reason: Pain) Patient Comments: PAIN prednisone 10 MG tablet 10 mg PO DAILY PRN (Reason: Joint Pain) Patient Comments: inflammation folic acid 1 MG tablet 1 mg PO DAILY@0800 Patient Comments: SUPPLEMENT cholecalciferol (vitamin D3) [Vitamin D3] 1,000 UNIT tablet 1,000 unit PO DAILY Patient Comments: SUPPLEMENT calcium carbonate-vitamin D3 [Caltrate with Vitamin D3] 1 TAB tablet 1 tab PO Q12H Patient Comments: SUPPLEMENT hydroxychloroquine 200 mg tablet 1,500 mg PO DAILYCM Patient Comments: JOINT methotrexate sodium 2.5 MG tablet 15 mg PO TU tramadol 50 mg Tablet 50 mg PO Q4H PRN (Reason: Pain) Calquence 100 mg Capsule 100 mg PO Q12H alprazolam 0.5 mg tablet 0.5 mg PO PRN PRN (Reason: anxiety) albuterol 90 mcg/actuation aerosol 90 mcg inhalation Q4H PRN PRN (Reason: shortness of breath) pantoprazole 40 mg tablet,delayed release (DR/EC) 40 mg PO BID Qty: 180 2RF Primary Care Provider: Keegan Wolf Referrals: Keegan Wolf DO [Primary Care Provider] - 5-7 Days Print Language: [place] Disposition Disposition: Home, Self Care
[2025-05-08 10:16] VITALS: BP 122/62; BP 123/66; BP 138/71; PULSE 65; PULSE 70; PULSE 77
[2025-05-08 10:22] LABS: Hematocrit 42.5 % (37-47); Hemoglobin 13.6 g/dL (12.0-15.0); Immature Granulocytes Count 0.020 X10^3/uL (0.0-0.0); Mean Corp Hgb Conc 32.0 g/dL (32-36); Mean Corpuscular Volume 88.7 fL (81-99); Mean Platelet Vol. 10.8 fl (6.2-12.0); NRBC Flagged by Analyzer 0 % (0-5); Platelet Count 163 K/mm3 (150-450); RBC Distribution Width CV 16.5 % (11.6-14.6); RBC Distribution Width SD 53.1 fl (35.1-43.9); Red Blood Count 4.79 M/mm3 (4.2-5.4); White Blood Count 5.9 K/mm3 (4.4-11.0)
[2025-05-08 10:30] LABS: Prothrombin Time (Protime)PT. 15.1 SECONDS (11.7-14.9)
[2025-05-08 10:31] LABS: Partial Thromboplast Time 30.5 Seconds (24.1-36.2)
[2025-05-08] MEDS: 0.9% Normal Saline (1000mL) 1,000 ML 1000 ML IV (10:32)
[2025-05-08 10:33] VITALS: BP 127/56; PULSE 62
[2025-05-08 10:43] LABS: Anion Gap 13 (5-15); BUN 25 mg/dL (4-19); BUN/Creat Ratio 26.6 RATIO (10-20); Calcium,Total 9.4 mg/dL (7.6-11.0); Carbon Dioxide 22.5 mmol/L (21.0-32.0); Chloride 105 mmol/L (98-108); Estimated Creatinine Clearance 54.37 ml/min (50-250); Glucose 103 mg/dL (70-99); Potassium 4.3 mmol/L (3.3-5.1)
[2025-05-08 11:00] VITALS: BP 119/63; PULSE 68; RESP 17; O2SAT 100
[2025-05-08 11:29] LABS: Mucous, Urine 0 SEEN /hpf (<or=2+); Squamous Epithelial Cells - UA 0 SEEN /hpf (5-10)
[2025-05-08 11:30] LABS: Color, Urine Yellow (Yellow); Glucose, Dipstick Normal (Normal); Ketone-Dipstick 15 mg/dl (Negative); Leukocyte Esterase-Dipstick Negative /ul (Negative); Nitrite-Dipstick Negative (Negative); Occult Blood-Urine 10 /ul (Negative); Protein-Dipstick 30 mg/dl (Negative); Specific Gravity, Urine 1.020 (1.002-1.030); Urine Bilirubin Dipstick Negative (Negative)
[2025-05-08 11:41] LABS: Red Blood Cells-Urine 0-5 SEEN /hpf (0-5)
[2025-05-08 12:00] VITALS: BP 125/58; PULSE 66; RESP 18; TEMP 36.5; O2SAT 100
== END 2025-05-08 12:16 | disposition home or self-care (01) ==
PROVIDERS: Emergency Provider Emergency Medicine; PCP Student in an Organized Health Care Education/Training Program; Visit Provider Emergency Medicine
DX: R55 Syncope and collapse (principal); S00.83XA Contusion of other part of head, initial encounter; Z79.51 Long term (current) use of inhaled steroids; Z79.899 Other long term (current) drug therapy; X58.XXXA Exposure to other specified factors, initial encounter
CPT/HCPCS: 70450; 72125; 80048; 81001; 85025; 85610; 85730; 93005; 96360; 99285; A4216